=== PATIENT | male | born 1945 | race Caucasian/White ===

== ENCOUNTER 2020-11-01 07:24 | Emergency (ER) | payer MEDICARE ==
[2020-11-01 07:31] VITALS: RESP 18; TEMP 97.8
[2020-11-01] MEDS ORDERED: SODIUM CHLORIDE 0.9% 1,000 ML IV STA (08:07)
[2020-11-01] MEDS ORDERED: MORPHINE SULFATE 2 MG/ML SYRINGE IVP STA (08:07)
[2020-11-01] MEDS ORDERED: ONDANSETRON 4 MG/2 ML VIAL IVP STA (08:07)
--- NOTE | 2020-11-01 08:16 | ED ---
General Adult HPI - General Chief complaint: Abdominal Pain Stated complaint: Abd Pain Time Seen by Provider: 11/01/20 07:32 Source: patient, RN notes reviewed Mode of arrival: ambulatory Limitations: no limitations - History of Present Illness Initial comments: 75-year-old male with a past medical history of GERD, hypertension, kidney stones, cholecystectomy presents to the emergency room for chief complaint of abdominal pain. Patient reports he has had abdominal pain on and off since Wednesday. He reports that Wednesday he had 4 episodes of vomiting. He states this resolved but he is still nauseous and has not been eating or drinking. Patient had 4 loose bowel movements Wednesday. States that these were dark and sticky. He has not had bowel movement since has been passing gas. States that since that time his abdomen has been distended. He has had intermittent pain.Patient has no other complaints at this time including shortness of breath, chest pain, nausea or vomiting, headache, or visual changes. - Related Data Previous Rx's Medication Instructions Recorded Dicyclomine [Bentyl] 20 mg PO TID PRN #14 tablet 11/01/20 Ondansetron [Zofran ODT] 4 mg PO Q8HR PRN #15 tab 11/01/20 Allergies Allergy/AdvReac Type Severity Reaction Status Date / Time No Known Allergies Allergy Verified 11/01/20 07:25 Review of Systems ROS Statement: Those systems with pertinent positive or pertinent negative responses have been documented in the HPI. ROS Other: All systems not noted in ROS Statement are negative. Past Medical History Past Medical History: GERD/Reflux, Hypertension, Thyroid Disorder Additional Past Medical History / Comment(s): kidney stones History of Any Multi-Drug Resistant Organisms: None Reported Past Surgical History: Cholecystectomy Additional Past Surgical History / Comment(s): lithotripsy Past Psychological History: No Psychological Hx Reported Smoking Status: Never smoker Past Alcohol Use History: None Reported Past Drug Use History: None Reported General Exam Limitations: no limitations General appearance: alert, in no apparent distress Head exam: Present: atraumatic, normocephalic, normal inspection Eye exam: Present: normal appearance, PERRL, EOMI. Absent: scleral icterus, conjunctival injection, periorbital swelling ENT exam: Present: normal exam, mucous membranes moist Neck exam: Present: normal inspection, full ROM. Absent: tenderness, men ingismus, lymphadenopathy Respiratory exam: Present: normal lung sounds bilaterally. Absent: respiratory distress, wheezes, rales, rhonchi, stridor Cardiovascular Exam: Present: regular rate, normal rhythm, normal heart sounds. Absent: systolic murmur, diastolic murmur, rubs, gallop, clicks GI/Abdominal exam: Present: soft, distended, normal bowel sounds. Absent: tenderness (no significant abdominal tenderness), guarding, rebound, rigid Course Vital Signs 11/01/20 07:25 Temperature 97.8 F Pulse Rate 107 H Respiratory 18 Rate Blood Pressure 134/89 O2 Sat by Pulse 97 Oximetry Medical Decision Making - Medical Decision Making Vitals are stable. CBC unremarkable. CMP does show dehydration. Patient was given a liter of fluid. Total bilirubin 2.1, patient does have a history of cholecystectomy. Patient does have 37 white blood cells in the urine however no bacteria. This will be cultured. CT abdomen and pelvis with contrast shows numerous fluid-filled small bowel loops could be associated with enteritis or ileus. Partial obstructive pattern not entirely excluded. Patient does report that he is passing gas. There are also other incidental findings found, patient will follow-up with his primary care doctor to review the CAT scan findings. These were discussed with patient. Patient reevaluated, pain has subsided. Given possible partial obstructive pattern, I did offer admission to patient. At this time he prefers to go home and return if he has worsening symptoms. I discussed her to return parameters with patient and . They will call Dr. Menjivar to follow up today. - Lab Data Result diagrams: 11/01/20 08:19 11/01/20 08:19 Lab Results 11/01/20 11/01/20 11/01/20 Range/Units 08:19 08:19 08:19 WBC 8.7 (3.8-10.6) k/uL RBC 5.40 (4.30-5.90) m/uL Hgb 17.0 (13.0-17.5) gm/dL Hct 48.1 (39.0-53.0) % MCV 89.1 (80.0-100.0) fL MCH 31.5 (25.0-35.0) pg MCHC 35.3 (31.0-37.0) g/dL RDW 13.0 (11.5-15.5) % Plt Count 238 (150-450) k/uL MPV 7.1 Neutrophils % 81 % Lymphocytes % 6 % Monocytes % 9 % Eosinophils % 2 % Basophils % 0 % Neutrophils # 7.0 (1.3-7.7) k/uL Lymphocytes # 0.6 L (1.0-4.8) k/uL Monocytes # 0.8 (0-1.0) k/uL Eosinophils # 0.2 (0-0.7) k/uL Basophils # 0.0 (0-0.2) k/uL Sodium 139 (137-145) mmol/L Potassium 3.7 (3.5-5.1) mmol/L Chloride 108 H (98-107) mmol/L Carbon Dioxide 24 (22-30) mmol/L Anion Gap 7 mmol/L BUN 27 H (9-20) mg/dL Creatinine 0.75 (0.66-1.25) mg/dL Est GFR (CKD-EPI)AfAm >90 (>60 ml/min/1.73 sqM) Est GFR (CKD-EPI)NonAf 90 (>60 ml/min/1.73 sqM) Glucose 123 H (74-99) mg/dL Plasma Lactic Acid Mookie (0.7-2.0) mmol/L Calcium 9.0 (8.4-10.2) mg/dL Total Bilirubin 2.1 H (0.2-1.3) mg/dL AST 53 (17-59) U/L ALT 36 (4-49) U/L Alkaline Phosphatase 82 (38-126) U/L Total Protein 6.4 (6.3-8.2) g/dL Albumin 3.6 (3.5-5.0) g/dL Amylase 37 (30-110) U/L Lipase 31 (23-300) U/L Urine Color Yellow Urine Appearance Clear (Clear) Urine pH 5.5 (5.0-8.0) Ur Specific [place] 1.030 (1.001-1.035) Urine Protein Trace H (Negative) Urine Glucose (UA) Negative (Negative) Urine Ketones 1+ H (Negative) Urine Blood Small H (Negative) Urine Nitrite Negative (Negative) Urine Bilirubin Negative (Negative) Urine Urobilinogen 2.0 (<2.0) mg/dL Ur Leukocyte Esterase Large H (Negative) Urine RBC 56 H (0-5) /hpf Urine WBC 37 H (0-5) /hpf Urine Mucus Moderate H (None) /hpf Stool Occult Blood (Negative) 11/01/20 11/01/20 Range/Units 08:19 08:19 WBC (3.8-10.6) k/uL RBC (4.30-5.90) m/uL Hgb (13.0-17.5) gm/dL Hct (39.0-53.0) % MCV (80.0-100.0) fL MCH (25.0-35.0) pg MCHC (31.0-37.0) g/dL RDW (11.5-15.5) % Plt Count (150-450) k/uL MPV Neutrophils % % Lymphocytes % % Monocytes % % Eosinophils % % Basophils % % Neutrophils # (1.3-7.7) k/uL Lymphocytes # (1.0-4.8) k/uL Monocytes # (0-1.0) k/uL Eosinophils # (0-0.7) k/uL Basophils # (0-0.2) k/uL Sodium (137-145) mmol/L Potassium (3.5-5.1) mmol/L Chloride (98-107) mmol/L Carbon Dioxide (22-30) mmol/L Anion Gap mmol/L BUN (9-20) mg/dL Creatinine (0.66-1.25) mg/dL Est GFR (CKD-EPI)AfAm (>60 ml/min/1.73 sqM) Est GFR (CKD-EPI)NonAf (>60 ml/min/1.73 sqM) Glucose (74-99) mg/dL Plasma Lactic Acid Mookie 1.0 (0.7-2.0) mmol/L Calcium (8.4-10.2) mg/dL Total Bilirubin (0.2-1.3) mg/dL AST (17-59) U/L ALT (4-49) U/L Alkaline Phosphatase (38-126) U/L Total Protein (6.3-8.2) g/dL Albumin (3.5-5.0) g/dL Amylase (30-110) U/L Lipase (23-300) U/L Urine Color Urine Appearance (Clear) Urine pH (5.0-8.0) Ur Specific [place] (1.001-1.035) Urine Protein (Negative) Urine Glucose (UA) (Negative) Urine Ketones (Negative) Urine Blood (Negative) Urine Nitrite (Negative) Urine Bilirubin (Negative) Urine Urobilinogen (<2.0) mg/dL Ur Leukocyte Esterase (Negative) Urine RBC (0-5) /hpf Urine WBC (0-5) /hpf Urine Mucus (None) /hpf Stool Occult Blood Negative (Negative) Disposition Clinical Impression: Abdominal pain, Nausea vomiting and diarrhea Disposition: HOME SELF-CARE Condition: Good Instructions (If sedation given, give patient instructions): Abdominal Pain (ED), Clear Liquid Diet (ED) Additional Instructions: Please take medications as directed. Follow-up with Dr. Menjivar by calling today. You must return to the emergency room for any worsening symptoms. These could include worsening abdominal pain, vomiting, no longer passing gas, fevers, or any other concerning symptoms. Prescriptions: Dicyclomine [Bentyl] 20 mg PO TID PRN #14 tablet PRN Reason: abdominal pain Ondansetron [Zofran ODT] 4 mg PO Q8HR PRN #15 tab PRN Reason: Nausea Is patient prescribed a controlled substance at d/c from ED?: No Referrals: Natalie Menjivar MD [Primary Care Provider] - 1-2 days Time of Disposition: 10:03
[2020-11-01 08:31] LABS: Basophils % (A) 0 %; Eosinophils # (A) 0.2 k/uL (0-0.7); Eosinophils % (A) 2 %; HCT 48.1 % (39.0-53.0); Lymphocytes # (A) 0.6 k/uL (1.0-4.8); Lymphocytes % (A) 6 %; MCH 31.5 pg (25.0-35.0); MCHC 35.3 g/dL (31.0-37.0); MCV 89.1 fL (80.0-100.0); Mean Platelet Volume 7.1; Monocytes # (A) 0.8 k/uL (0-1.0); Monocytes % (A) 9 %; Neutrophils % (A) 81 %; Platelet Count 238 k/uL (150-450); WBC 8.7 k/uL (3.8-10.6)
[2020-11-01 08:51] LABS: ALT 36 U/L (4-49); AST 53 U/L (17-59); African American GFR (CKD) >90 (>60 ml/min/1.73 sqM); Albumin 3.6 g/dL (3.5-5.0); Alkaline Phosphatase 82 U/L (38-126); Amylase 37 U/L (30-110); Anion Gap 7 mmol/L; Blood Urea Nitrogen 27 mg/dL (9-20); Carbon Dioxide 24 mmol/L (22-30); Chloride 108 mmol/L (98-107); Glucose 123 mg/dL (74-99); Lipase 31 U/L (23-300); Non-African American GFR(CKD) 90 (>60 ml/min/1.73 sqM); Potassium 3.7 mmol/L (3.5-5.1); Sodium 139 mmol/L (137-145); Total Bilirubin 2.1 mg/dL (0.2-1.3); Total Protein 6.4 g/dL (6.3-8.2)
[2020-11-01 09:03] LABS: Appearance,Urine Clear (Clear); Bilirubin,Urine Negative (Negative); Blood,Urine Small (Negative); Color,Urine Yellow; Glucose,Urine (UA) Negative (Negative); Ketones,Urine 1+ (Negative); Leukocyte Esterase,Urine Large (Negative); Mucus,Urine Moderate /hpf; Nitrite,Urine Negative (Negative); PH, Urine 5.5 (5.0-8.0); Protein,Urine Trace (Negative); RBC,Urine 56 /hpf (0-5); WBC,Urine 37 /hpf (0-5)
--- NOTE | 2020-11-01 09:25 | CT ---
EXAMINATION TYPE: CT abdomen pelvis w con DATE OF EXAM: 11/01/2020 COMPARISON: None HISTORY: Abdominal pain, bloating, nausea, vomiting CT DLP: 966.7 mGycm Automated exposure control for dose reduction was used. CONTRAST: CT scan of the abdomen pelvis is performed with IV Contrast, patient injected with 100 mL of Isovue 3 00. FINDINGS- LUNG BASES-dense coronary artery subsegmental atelectasis.. LIVER/GB- No hypodensities within the liver is small to characterize likely in the basis of simple cyst and there is a small amount of free fluid surrounding the liver. Postcholecystectomy. PANCREAS- No gross abnormality is seen. SPLEEN- No gross abnormality is seen. ADRENALS- No gross abnormality is seen. KIDNEYS/BLADDER-there are bilateral numerous renal calculi and no evidence of hydronephrosis. Hypoden sities measuring less than centimeter bilaterally. BOWEL- no bowel dilatation. Normal appendix there are few prominent fluid-filled small bowel loops. There is mild induration of the mesentery in the right iliac. Correlate for an enteritis or ileus. P artial obstruction not excluded. Correlate clinically. 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 Diverticulosis of the colon. Small hiatal hernia noted. LYMPH NODES- No greater than 1cm abdominal or pelvic lymph nodes areappreciated. OSSEOUS STRUCTURES-hypertrophic and degenerative changes of the spine.. OTHER- aorta of normal caliber. Small amount of free fluid surrounding the liver. Punctate calcifica tion the bladder in the prostate is enlarged. Nonspecific small amount of fluid in the pelvis. Athero sclerotic change aorta. Tiny fat-containing periumbilical hernia. IMPRESSION- 1. Nonspecific gas pattern. There are numerous fluid-filled small bowel loops mid and right mid abdom en with mild induration of the fat which could be associated with enteritis or ileus. Partial obstruc tive pattern not entirely excluded. 2. Bilateral nonobstructing renal calculi. Punctate calcification in the posterior margin of the blad savage suggesting bladder calculus. Prostate is enlarged correlate with PSA. 3. 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 4. There is a small amount of free fluid in the pelvis as well as surrounding the liver correlate wit h LFTs for hepatocellular disease.
[2020-11-01 10:05] VITALS: BP 127/90; PULSE 85
== END 2020-11-01 10:13 | disposition home or self-care (01) ==
LOC: EC 07:24
DX: R10.9 Unspecified abdominal pain (principal); R11.2 Nausea with vomiting, unspecified; R19.7 Diarrhea, unspecified; I10 Essential (primary) hypertension; Z90.49 Acquired absence of other specified parts of digestive tract; Z87.442 Personal history of urinary calculi
CPT/HCPCS: 36415; 80053; 82150; 83605; 83690; 85025; 82272; 81001; 87086; 74177; 99284; 96374; 96375; 96361; J2405; J2270; Q9967; 96360; 99285

== ENCOUNTER → 2020-11-04 | Outpatient (CLI) | payer MEDICARE ==
--- NOTE | 2020-11-04 10:35 | XR ---
EXAMINATION TYPE: XR abdomen 2V DATE OF EXAM: 11/04/2020 10:12 AM CLINICAL HISTORY: History of partial bowel obstruction TECHNIQUE: Single supine KUB image of the abdomen is obtained. COMPARISON: None. FINDINGS: Scattered gas is seen in non-distended small bowel loops. Gas and fecal material is seen in mildly distended colon. There is no visceromegaly, pneumoperitoneum, or abnormal calcification appre ciated. The lung bases are clear and the osseous structures are intact. Densities overlie the bilater al renal shadows, consistent with known nephrolithiasis. IMPRESSION: There is a large amount of fecal material seen within a mildly distended descending colon. Bilateral nephrolithiasis.
== END | disposition home or self-care (01) ==
LOC: RADXRMAIN 09:50
PROVIDERS: ATTEND Internal Medicine
DX: N20.0 Calculus of kidney (principal); K56.600 Partial intestinal obstruction, unspecified as to cause
CPT/HCPCS: 74019

== ENCOUNTER 2020-12-05 12:21 | Emergency (ER) | payer MEDICARE ==
[2020-12-05 12:29] VITALS: TEMP 97.6
[2020-12-05] MEDS ORDERED: SODIUM CHLORIDE 0.9% 500 ML 500 ML IV STA (13:14)
--- NOTE | 2020-12-05 13:20 | ED ---
General Adult HPI - General Chief complaint: Syncope Stated complaint: Syncope Time Seen by Provider: 12/05/20 12:25 Source: patient, EMS, RN notes reviewed, old records reviewed Mode of arrival: EMS Limitations: no limitations - History of Present Illness Initial comments: This is a 75-year-old male who presents emergency department after having had a syncopal episode. Patient states he had surgery on his eye on Wednesday the contact that was post to protect his eye fell out and he was in excruciating pain ever since he fell about 2 hours after surgery. Patient said he had a real rough night last night in the middle the night he woke up he was in so much pain he decided he needed to go to the eye doctor today when he was at the eye doctor's office they attempted 6 or 7 times at least to try to put the contact begin the eventually got up in the meantime the pain was excruciating he became extremely nauseous and passed out in a chair. Patient states at no time before or after didn't have any chest pain difficulty breathing or shortness of breath he denies any headache denies any numbness weakness. Patient states he feels completely at his baseline again and the pain is much better now that the Contact and protects his cornea. Patient denies any other symptoms at this time per patient denies any nausea vomiting. Patient states he was eating normally - Related Data Home Medications Medication Instructions Recorded Confirmed Aspirin EC [Ecotrin Low Dose] 162 mg PO DAILY 12/05/20 12/05/20 Cholecalciferol [Vitamin D3 (25 50 mcg PO DAILY 12/05/20 12/05/20 Mcg = 1000 Iu)] Docusate [Colace] 200 mg PO DAILY 12/05/20 12/05/20 Levothyroxine Sodium [Synthroid] 75 mcg PO [id number] 12/05/20 12/05/20 Levothyroxine Sodium [Synthroid] 150 mcg PO CASE 12/05/20 12/05/20 Multivit-Min/Folic/Vit K/Lycop 1 tab PO W/LUNCH 12/05/20 12/05/20 [Men's Multivitamin Tablet] NIFEdipine [NIFEdipine ER] 30 mg PO DAILY 12/05/20 12/05/20 Ofloxacin 0.3% Ophth Soln [Ocuflox 1 drop LEFT EYE QID 12/05/20 12/05/20 Ophth Soln] Omeprazole Magnesium [PriLOSEC] 20 mg PO DAILY 12/05/20 12/05/20 Allergies Allergy/AdvReac Type Severity Reaction Status Date / Time No Known Allergies Allergy Verified 12/05/20 13:58 Review of Systems ROS Statement: Those systems with pertinent positive or pertinent negative responses have been documented in the HPI. ROS Other: All systems not noted in ROS Statement are negative. Past Medical History Past Medical History: GERD/Reflux, Hypertension, Thyroid Disorder Additional Past Medical History / Comment(s): kidney stones History of Any Multi-Drug Resistant Organisms: None Reported Past Surgical History: Cholecystectomy Additional Past Surgical History / Comment(s): lithotripsy Past Psychological History: No Psychological Hx Reported Smoking Status: Never smoker Past Alcohol Use History: None Reported Past Drug Use History: None Reported General Exam - General Exam Comments Initial Comments: GENERAL: Patient is well-developed and well-nourished. Patient is nontoxic and well- hydrated and is in no acute distress. ENT: Neck is soft and supple. No significant lymphadenopathy is noted. Oropharynx is clear. Moist mucous membranes. Neck has full range of motion without eliciting any pain. EYES: The sclera were anicteric and conjunctiva were pink and moist. Extraocular movements were intact and pupils were equal round and reactive to light. Eyelids were unremarkable. PULMONARY: Unlabored respirations. Good breath sounds bilaterally. No audible rales rhonchi or wheezing was noted. CARDIOVASCULAR: There is a regular rate and rhythm without any murmurs gallops or rubs. ABDOMEN: Soft and nontender with normal bowel sounds. SKIN: Skin is clear with no lesions or rashes and otherwise unremarkable. NEUROLOGIC: Patient is alert and oriented x3. Cranial nerves II through XII are grossly intact. Motor and sensory are also intact. Normal speech, volume and content. Symmetrical smile. MUSCULOSKELETAL: Normal extremities with adequate strength and full range of motion. LYMPHATICS: No significant lymphadenopathy is noted PSYCHIATRIC: Normal psychiatric evaluation. Limitations: no limitations Course Vital Signs 12/05/20 12/05/20 12/05/20 12:23 13:20 13:24 Temperature 97.6 F Pulse Rate 71 Pulse Rate [ 70 71 [employer]inator ] Respiratory 18 18 18 Rate Blood Pressure 105/69 Blood Pressure 112/71 [Left Arm Sitting] Blood Pressure 102/67 [Left Arm Standing] Blood Pressure 108/71 [Left Arm Supine] O2 Sat by Pulse 99 98 98 Oximetry Medical Decision Making - Medical Decision Making EKG shows normal sinus rhythm at [address] interval 176 QRS is 94 QT interval 408 QTC is 433. Patient's EKG shows no ST segment elevation or depression. Patient's lab work is normal. Patient was asymptomatic throughout his ED stay. Patient states his eye is very comfortable compared to before. Patient is agreeable to be discharged home and if he has any further symptoms to return. - Lab Data Result diagrams: 12/05/20 13:17 12/05/20 13:17 Lab Results 12/05/20 12/05/20 12/05/20 Range/Units 13:17 13:17 13:17 WBC 7.8 (3.8-10.6) k/uL RBC 5.52 (4.30-5.90) m/uL Hgb 17.4 (13.0-17.5) gm/dL Hct 51.1 (39.0-53.0) % MCV 92.6 (80.0-100.0) fL MCH 31.5 (25.0-35.0) pg MCHC 34.0 (31.0-37.0) g/dL RDW 14.0 (11.5-15.5) % Plt Count 314 (150-450) k/uL MPV 7.9 Neutrophils % 64 % Lymphocytes % 16 % Monocytes % 8 % Eosinophils % 7 % Basophils % 2 % Neutrophils # 5.0 (1.3-7.7) k/uL Lymphocytes # 1.2 (1.0-4.8) k/uL Monocytes # 0.6 (0-1.0) k/uL Eosinophils # 0.6 (0-0.7) k/uL Basophils # 0.1 (0-0.2) k/uL PT 10.3 (9.0-12.0) sec INR 1.0 (<1.2) APTT 22.4 (22.0-30.0) sec Sodium 138 (137-145) mmol/L Potassium 4.1 (3.5-5.1) mmol/L Chloride 107 (98-107) mmol/L Carbon Dioxide 20 L (22-30) mmol/L Anion Gap 11 mmol/L BUN 17 (9-20) mg/dL Creatinine 0.87 (0.66-1.25) mg/dL Est GFR (CKD-EPI)AfAm >90 (>60 ml/min/1.73 sqM) Est GFR (CKD-EPI)NonAf 85 (>60 ml/min/1.73 sqM) Glucose 125 H (74-99) mg/dL Calcium 10.3 H (8.4-10.2) mg/dL Magnesium 2.1 (1.6-2.3) mg/dL Total Bilirubin 1.2 (0.2-1.3) mg/dL AST 24 (17-59) U/L ALT 16 (4-49) U/L Alkaline Phosphatase 113 (38-126) U/L Troponin I (0.000-0.034) ng/mL Total Protein 7.3 (6.3-8.2) g/dL Albumin 4.4 (3.5-5.0) g/dL 12/05/20 Range/Units 13:17 WBC (3.8-10.6) k/uL RBC (4.30-5.90) m/uL Hgb (13.0-17.5) gm/dL Hct (39.0-53.0) % MCV (80.0-100.0) fL MCH (25.0-35.0) pg MCHC (31.0-37.0) g/dL RDW (11.5-15.5) % Plt Count (150-450) k/uL MPV Neutrophils % % Lymphocytes % % Monocytes % % Eosinophils % % Basophils % % Neutrophils # (1.3-7.7) k/uL Lymphocytes # (1.0-4.8) k/uL Monocytes # (0-1.0) k/uL Eosinophils # (0-0.7) k/uL Basophils # (0-0.2) k/uL PT (9.0-12.0) sec INR (<1.2) APTT (22.0-30.0) sec Sodium (137-145) mmol/L Potassium (3.5-5.1) mmol/L Chloride (98-107) mmol/L Carbon Dioxide (22-30) mmol/L Anion Gap mmol/L BUN (9-20) mg/dL Creatinine (0.66-1.25) mg/dL Est GFR (CKD-EPI)AfAm (>60 ml/min/1.73 sqM) Est GFR (CKD-EPI)NonAf (>60 ml/min/1.73 sqM) Glucose (74-99) mg/dL Calcium (8.4-10.2) mg/dL Magnesium (1.6-2.3) mg/dL Total Bilirubin (0.2-1.3) mg/dL AST (17-59) U/L ALT (4-49) U/L Alkaline Phosphatase (38-126) U/L Troponin I <0.012 (0.000-0.034) ng/mL Total Protein (6.3-8.2) g/dL Albumin (3.5-5.0) g/dL Disposition Clinical Impression: Vasovagal syncope Disposition: HOME SELF-CARE Condition: Good Instructions (If sedation given, give patient instructions): Hypotension (ED) Is patient prescribed a controlled substance at d/c from ED?: No Referrals: Natalie Menjivar MD [Primary Care Provider] - 1-2 days Time of Disposition: 14:20
[2020-12-05 13:27] LABS: Basophils # (A) 0.1 k/uL (0-0.2); Basophils % (A) 2 %; Eosinophils # (A) 0.6 k/uL (0-0.7); Eosinophils % (A) 7 %; HCT 51.1 % (39.0-53.0); HGB 17.4 gm/dL (13.0-17.5); Lymphocytes # (A) 1.2 k/uL (1.0-4.8); Lymphocytes % (A) 16 %; MCH 31.5 pg (25.0-35.0); MCV 92.6 fL (80.0-100.0); Mean Platelet Volume 7.9; Monocytes # (A) 0.6 k/uL (0-1.0); Monocytes % (A) 8 %; Neutrophils % (A) 64 %; Platelet Count 314 k/uL (150-450); RBC 5.52 m/uL (4.30-5.90); WBC 7.8 k/uL (3.8-10.6)
[2020-12-05 13:37] LABS: ALT 16 U/L (4-49); AST 24 U/L (17-59); African American GFR (CKD) >90 (>60 ml/min/1.73 sqM); Albumin 4.4 g/dL (3.5-5.0); Alkaline Phosphatase 113 U/L (38-126); Anion Gap 11 mmol/L; Blood Urea Nitrogen 17 mg/dL (9-20); Calcium 10.3 mg/dL (8.4-10.2); Carbon Dioxide 20 mmol/L (22-30); Chloride 107 mmol/L (98-107); Glucose 125 mg/dL (74-99); Magnesium 2.1 mg/dL (1.6-2.3); Non-African American GFR(CKD) 85 (>60 ml/min/1.73 sqM); Potassium 4.1 mmol/L (3.5-5.1); Sodium 138 mmol/L (137-145); Total Bilirubin 1.2 mg/dL (0.2-1.3); Total Protein 7.3 g/dL (6.3-8.2)
[2020-12-05 13:40] LABS: Partial Thromboplastin Time 22.4 sec (22.0-30.0); Prothrombin Time 10.3 sec (9.0-12.0)
[2020-12-05 14:44] VITALS: BP 126/84; PULSE 64; RESP 16
== END 2020-12-05 14:44 | disposition home or self-care (01) ==
LOC: EC 12:21
DX: R55 Syncope and collapse (principal); I10 Essential (primary) hypertension; K21.9 Gastro-esophageal reflux disease without esophagitis; E07.9 Disorder of thyroid, unspecified; Z79.890 Hormone replacement therapy
CPT/HCPCS: 36415; 80053; 83735; 84484; 85025; 85610; 85730; 93005; 96360; 99284

== ENCOUNTER → 2021-09-04 | Outpatient (CLI) | payer MEDICARE ==
--- NOTE | 2021-09-05 09:29 | XR ---
EXAMINATION TYPE: XR KUB DATE OF EXAM: 09/04/2021 Comparison: 11/04/2020 Clinical History: 76-year-old male N20.0 Kidney stones Findings: Cholecystectomy clips. Moderate stool burden. Nonobstructive bowel gas pattern. Bilateral renal calculi are present: Clustered calculus left kidney with aggregate dimension of 2.8 cm. Additional smaller calculi measuri ng up to 4 mm are present on the left. At least 4 dominant calculi in the right, largest measuring 2.2 cm. Impression: Bilateral renal calculi as above. Similar to 11/04/2020.
== END | disposition home or self-care (01) ==
LOC: RADXRMAIN 15:00
PROVIDERS: ATTEND Internal Medicine
DX: N20.0 Calculus of kidney (principal)
CPT/HCPCS: 74018

== ENCOUNTER → 2022-01-13 | Outpatient (CLI) | payer MEDICARE ==
[2022-01-13 13:52] LABS: African American GFR (CKD) >90 (>60 ml/min/1.73 sqM); Blood Urea Nitrogen 25 mg/dL (9-20); Non-African American GFR(CKD) 84 (>60 ml/min/1.73 sqM)
--- NOTE | 2022-01-13 16:25 | CT ---
EXAMINATION TYPE: CT urogram wo/w con DATE OF EXAM: 01/13/2022 COMPARISON: 09/04/2021 HISTORY: 76-year-old male R82.89, other abnormal findings on cytology, bilateral stones TECHNIQUE: Contiguous axial scanning of the abdomen and pelvis performed without and with IV Contrast , patient injected with 100 mL of Isovue 300. Delayed images through the kidneys and bladder were obt ained. Coronal/sagittal reconstructions performed. 3-D reconstructions generated on a dedicated [employer] workstation. CT DLP: 4671 mGycm Automated exposure control for dose reduction was used. FINDINGS: Heart normal size without pericardial effusion. Normal variant sternal foramen. Strandy atelectasis i n the lower lungs without pleural effusion. A few small benign cysts within the liver, largest measuring 1.4 cm. Portal venous system is patent. No biliary ductal dilatation. Cholecystectomy clips. Portacaval lymph node prominent but nonenlarged 1.2 cm. No mesenteric or retroperitoneal lymphadenop athy. Adrenal glands and spleen within normal limits. Enlarging heterogeneous hypovascular mass at the tail of the pancreas at 4.2 x 2.0 cm now versus 2.8 x 2.0 cm, previously on 09/04/2021 and new compared to 11/01/2020. 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 Vessel d ilators up to 1.5 cm. Numerous bilateral renal calculi are present, largest stones are partially casting within the minor c alyces of the left kidney. 6 are present on the left measuring up to 2.4 cm. Approximately 6 calculi are present on the right as well, largest measuring 1.9 cm. Tiny 1.1 cm cortical hypodensity lateral left kidney unchanged from 2020 suggesting a benign cyst. A couple of very small hypodensities likely represent cysts as well. Symmetric uptake and excretion of contrast from both kidneys. No suspicious mass or suspicious fillin g defect in the renal collecting systems or along the course of either ureter. Only small segments of the distal ureters remain nonopacified but show no abnormal thickening. No dilated small bowel, free fluid, free air. Moderate stool burden. Sigmoid diverticulosis. No peric olonic inflammatory change. Bladder partially distended. Prostate gland is enlarged at 5.2 cm wide. There appears to be a cystic area within the left inferior prostate gland measuring 2.6 x 1.1 cm there are no abnormal fluid colle ction in the pelvis or pelvic lymphadenopathy. Bones: Mild degenerative change of the hips. Degenerative bony ankylosis right SI joint. Hypertrophic facet arthropathy mid to lower lumbar spine. Partially bridging anterior endplate spondylosis lumbar spine. [facility] in the lower thoracic spine. IMPRESSION: 1. ENLARGING HYPOVASCULAR PANCREATIC TAIL MASS. THIS MEASURED 2.8 CM ON 09/04/2021 AND NOW MEASURES 4. 2 CM. IT IS NEW COMPARED TO 11/01/2020. APPROPRIATE FURTHER EVALUATION AND MANAGEMENT FOR POTENTIAL PA NCREATIC ADENOCARCINOMA. 2. 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 3. NUMEROUS BILATERAL RENAL CALCULI MEASURING UP TO 2.4 CM. NO OBSTRUCTIVE UROPATHY OR SUSPICIOUS SILKE AL MASS. 4. PROSTATOMEGALY AT 5.2 CM WIDE. THERE APPEARS TO BE A CYSTIC AREA WITHIN THE LEFT INFERIOR PROSTATE GLAND MEASURING 2.6 X 1.1 CM. QUERY SITE OF PREVIOUS BIOPSY. CORRELATE WITH PSA VALUES AND PROSTATE ULTRASOUND INDICATED. A [place] level critical message alert has been initiated for Natalie Menjivar MD via the [employer] Critical Results System on 01/13/2022 1:22 PM. This message alert has been sent to Natalie Menjivar MD via the preferences provided by the clinician for the receipt of Radiology Critical Findings. Message ID [id number].
== END | disposition home or self-care (01) ==
LOC: RADCTMAIN 13:07
PROVIDERS: ATTEND Internal Medicine
DX: R82.89 Other abnormal findings on cytological and histological examination of urine (principal)
CPT/HCPCS: 82565; 84520; 74178; 36415; 74400; Q9967

== ENCOUNTER → 2022-01-16 | Outpatient (CLI) | payer MEDICARE ==
--- NOTE | 2022-01-16 12:42 | NM ---
EXAMINATION TYPE: NM stress cardiolite complete DATE OF EXAM: 01/16/2022 COMPARISON: NONE HISTORY: I20.8; K86.89 TECHNIQUE: After the intravenous administration of 9.7 mCi Tc 99m Sestamibi - Rest images obtained 5 0 minutes post injection. The patient exercised using a LEONILA protocol and 1 minute prior to peak e xercise was injected with 25.7 mCi Tc 99m Sestamibi - Stress images obtained 10 minutes post injectio n. FINDINGS: Targeted heart rate was achieved during performance of the study. Review of stress and rest SPECT nissa ges demonstrates small area of decreased perfusion involving the apical lateral wall on stress images . Stress-induced ischemia is difficult to exclude. Gated analysis shows normal wall motion with an es timated left ventricular ejection fraction of 62 %. IMPRESSION: I cannot exclude reversible ischemia involving the apical lateral wall.
== END | disposition home or self-care (01) ==
LOC: RADNMMAIN 07:43
PROVIDERS: ATTEND Internal Medicine
DX: I20.8 Other forms of angina pectoris (principal); K86.89 Other specified diseases of pancreas
CPT/HCPCS: 93017; 78452; A9500

== ENCOUNTER → 2022-01-17 | Outpatient (CLI) | payer MEDICARE ==
--- NOTE | 2022-01-18 05:22 | MR ---
EXAMINATION TYPE: MR pancreas wo/w con DATE OF EXAM: 01/17/2022 COMPARISON: CT scan 01/13/2022 HISTORY: Pancreatic mass. CONTRAST: Standard multiplanar, multisequence MRI departmental protocol images were obtained without contrast a nd with 8 mL intravenous Gadavist gadolinium contrast. The liver has normal size and contour. There is 2 cm cyst in the left lobe of the liver. There are ot her smaller hepatic cysts. Spleen is intact. The stomach is intact. The bile ducts are not dilated. T here is no evidence of pleural effusion. Heart size is normal. There is oval-shaped mixed-signal mass in the tail of the pancreas that measures 5 x 2.2 cm. On the T 2 images this appears to contain multiple small cysts. The contrast images show delayed enhancement o f the lesion. Enhancement is only in the periphery. There is no adrenal mass. Kidneys have normal size and contour. No hydronephrosis. No retroperitoneal adenopathy. The contrast images show normal enhancement of the portal venous system. There is normal enhancement of the kidneys. No evidence of ascites. IMPRESSION: Oval-shaped mass in the tail of the pancreas is hypovascular and appears to contain multiple small cy sts. There is some delayed peripheral enhancement and a cystic malignant tumor is certainly a possibi lity. No evidence of any regional adenopathy. Small hepatic cysts are noted.
== END | disposition home or self-care (01) ==
LOC: RADMRIMAIN 10:12
PROVIDERS: ATTEND Internal Medicine
DX: K86.89 Other specified diseases of pancreas (principal); K86.9 Disease of pancreas, unspecified
CPT/HCPCS: 74183; A9585

== ENCOUNTER → 2022-03-09 | Outpatient (CLI) | payer MEDICARE ==
--- NOTE | 2022-03-09 14:50 | CT ---
EXAMINATION TYPE: CT ChestAbdPelvis w con CT DLP: 1321.8 mGycm, Automated exposure control for dose reduction was used. DATE OF EXAM: 03/09/2022 1:57 PM COMPARISON: CT 01/13/2022 , 09/04/2021 6, 11/01/2020, MRI 01/17/2022 CLINICAL INDICATION:Male, 76 years old with history of D13.6 BENIGN NEOPLASM OF PANCREAS; Technique: Multiple axial images of the chest, abdomen, and pelvis were obtained. Two-dimensional cor onal and sagittal reconstructions were obtained. Contrast used:70 mL of Isovue 300 with IV Contrast, Oral contrast used: with Oral Contrast Findings: CHEST: LUNGS/ PLEURA: The lung parenchyma appears unremarkable. AIRWAY: Patent and unremarkable. HEART: Size within normal limits. Moderate atherosclerosis of the arterial vasculature. MEDIASTINUM: No gross evidence of adenopathy. VASCULATURE: No aortic aneurysm. MUSCULOSKELETAL: No acute osseous abnormalities. SOFT TISSUES/LYMPH NODES: Unremarkable. LOWER NECK: No significant findings. ABDOMEN: ABDOMEN LIVER: Scattered hypoechoic attenuating lesions throughout the liver the largest measuring 14 mm and most consistent with a cyst. GALLBLADDER AND BILE DUCTS: The gallbladder is surgically absent. PANCREAS: Pancreatic tail mass is again demonstrated measuring up to 5.1 x 2.4 cm which is hypoechoic attenuating compared to pancreatic parenchyma. Note that this is not definitively visualized on 11/01 and is most apparent on 09/04/2021 examination where it measured 2.8 x 2.0 cm without IV contras t which limited its evaluation 09/04/2021. SPLEEN: Unremarkable. ADRENAL GLANDS: Unremarkable. KIDNEYS AND URETERS: Bilateral nonobstructing renal calculi No evidence of obstructive uropathy. PELVIS BLADDER: Unremarkable REPRODUCTIVE: Prostate is enlarged in size measuring 5.3 cm in transverse dimension. Trace bilateral hydroceles. ABDOMEN & PELVIS STOMACH AND BOWEL: No evidence of bowel obstruction. Small hiatal hernia. Colonic diverticula are pre sent. PERITONEUM: No evidence of pneumoperitoneum or free fluid. VASCULATURE: No evidence of aortic aneurysm. 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 MUSCULOSKELETAL: No acute osseous abnormalities LYMPH NODES: No gross evidence for lymphadenopathy. SOFT TISSUE/ABDOMINAL WALL: Unremarkable IMPRESSION: 1. Redemonstration of pancreatic tail mass measuring up to 5.[address] No definitive evidence for metastatic disease at this time. 2. Bilateral nonobstructing renal calculi. 3. Prostatomegaly. Correlate with serum PSA. 4. 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 5. Colonic diverticulosis.
== END | disposition home or self-care (01) ==
LOC: RADCTMAIN 11:38
PROVIDERS: ATTEND Internal Medicine
DX: N20.0 Calculus of kidney (principal); N40.0 Benign prostatic hyperplasia without lower urinary tract symptoms; K57.30 Diverticulosis of large intestine without perforation or abscess without bleeding; D13.6 Benign neoplasm of pancreas; I77.4 Celiac artery compression syndrome
CPT/HCPCS: 82565; 84520; 71260; 74177; 36415; Q9967

== ENCOUNTER → 2022-03-16 | Outpatient (CLI) | payer MEDICARE ==
[2022-03-16 16:28] LABS: African American GFR (CKD) >90 (>60 ml/min/1.73 sqM); Blood Urea Nitrogen 20 mg/dL (9-20); Non-African American GFR(CKD) 89 (>60 ml/min/1.73 sqM)
--- NOTE | 2022-03-16 17:19 | CT ---
EXAMINATION TYPE: CT chest w con CT DLP: 357.8 mGycm, Automated exposure control for dose reduction was used. DATE OF EXAM: 03/16/2022 4:56 PM COMPARISON: CT chest abdomen pelvis 03/09/2022. CLINICAL INDICATION:Male, 76 years old with history of C25.2;chest mass TECHNIQUE: Multiple axial images were obtained through the chest. Sagittal and coronal reformats were created for review. Contrast used:100 mL of Isovue 370 with IV Contrast Oral contrast used: none. FINDINGS: LUNGS/ PLEURA: The lung parenchyma appears unremarkable. AIRWAY: Patent and unremarkable. HEART: No heart is within normal limits for size there is atherosclerosis of the arterial vasculature . MEDIASTINUM: No gross evidence of adenopathy. VASCULATURE: No aortic aneurysm. Mild atherosclerosis of the arterial vasculature. MUSCULOSKELETAL: No acute osseous abnormalities SOFT TISSUES/LYMPH NODES: Unremarkable. LOWER NECK: No significant findings. UPPER ABDOMEN: Redemonstration of pancreatic tail mass measuring up to 5.1 cm in greatest dimension. Scattered hepatic low density probable cyst. Multiple bilateral nonobstructing renal calculi. IMPRESSION: 1. No significant change from 03/09/2022 no chest mass or evidence of metastatic disease. 2. Similar pancreatic tail mass at 03/09/2022.
== END | disposition home or self-care (01) ==
LOC: RADCTMAIN 15:49
PROVIDERS: ATTEND Internal Medicine
DX: C25.2 Malignant neoplasm of tail of pancreas (principal); Z03.89 Encounter for observation for other suspected diseases and conditions ruled out
CPT/HCPCS: 82565; 84520; 71260; 36415; Q9967

== ENCOUNTER → 2022-04-03 | Outpatient (CLI) | payer MEDICARE ==
[~2022-04-03] MED LIST: TIXAGEVIMAB/CILGAVIMAB (EUA) 300 MG/3 ML COMBO.PKG IM NR
[2022-04-03 10:41] VITALS: RESP 16; TEMP 97.5
[2022-04-03 11:09] VITALS: BP 149/94; PULSE 87
== END ==
LOC: PROCWHC3 10:20
PROVIDERS: ATTEND Internal Medicine
DX: Z23 Encounter for immunization (principal); C25.2 Malignant neoplasm of tail of pancreas; Z71.3 Dietary counseling and surveillance
CPT/HCPCS: 96372; Q0220

== ENCOUNTER 2022-04-17 08:28 | Emergency (ER) | payer MEDICARE ==
[2022-04-17 08:37] VITALS: RESP 18; TEMP 97.6
[2022-04-17] MEDS ORDERED: PANTOPRAZOLE 40 MG/10 ML VIAL IVP STA (08:51)
[2022-04-17] MEDS ORDERED: SODIUM CHLORIDE 0.9% 1,000 ML IV STA (08:51)
--- NOTE | 2022-04-17 08:54 | ED ---
General Adult HPI - General Chief complaint: Abdominal Pain Stated complaint: Abd pain Time Seen by Provider: 04/17/22 08:40 Source: patient, RN notes reviewed Mode of arrival: ambulatory Limitations: no limitations - History of Present Illness Initial comments: Patient is a pleasant 76-year-old male presenting to the emergency department with concerns with abdominal discomfort. Onset of symptoms was last night. Patient did have nausea. No vomiting. Patient felt somewhat constipated however did have mild amount of loose stool which did improve the symptoms. Further symptom improvement occurred around time of arrival and discomfort is only mild at this time. Patient does not feel he needs any nausea or pain medication at this time. Patient does have recent diagnosis of pancreatic cancer, stage I. Patient has received 2 bouts of chemotherapy. - Related Data Home Medications Medication Instructions Recorded Confirmed Aspirin EC [Ecotrin Low Dose] 162 mg PO DAILY 12/05/20 04/03/22 Cholecalciferol [Vitamin D3 (25 50 mcg PO DAILY 12/05/20 04/03/22 Mcg = 1000 Iu)] Levothyroxine Sodium [Synthroid] 75 mcg PO MOTUWETHFRSA 12/05/20 04/03/22 Levothyroxine Sodium [Synthroid] 150 mcg PO CASE 12/05/20 04/03/22 Multivit-Min/Folic/Vit K/Lycop 1 tab PO W/LUNCH 12/05/20 04/03/22 [Men's Multivitamin Tablet] NIFEdipine [NIFEdipine ER] 30 mg PO DAILY 12/05/20 04/03/22 Ofloxacin 0.3% Ophth Soln [Ocuflox 1 drop LEFT EYE QID 12/05/20 04/03/22 Ophth Soln] Omeprazole Magnesium [PriLOSEC] 20 mg PO DAILY 12/05/20 04/03/22 Allergies Allergy/AdvReac Type Severity Reaction Status Date / Time No Known Allergies Allergy Verified 04/17/22 08:37 Review of Systems ROS Statement: Those systems with pertinent positive or pertinent negative responses have been documented in the HPI. ROS Other: All systems not noted in ROS Statement are negative. Constitutional: Denies: fever Eyes: Denies: eye pain ENT: Denies: ear pain Respiratory: Denies: cough Cardiovascular: Denies: chest pain Endocrine: Denies: fatigue Gastrointestinal: Reports: as per HPI, abdominal pain, nausea Genitourinary: Denies: dysuria Musculoskeletal: Denies: back pain Skin: Denies: rash Neurological: Denies: weakness Past Medical History Past Medical History: Cancer, GERD/Reflux, Hypertension, Thyroid Disorder Additional Past Medical History / Comment(s): kidney stones, Pancreatic Cancer History of Any Multi-Drug Resistant Organisms: None Reported Past Surgical History: Adenoidectomy, Appendectomy, Cholecystectomy, Tonsill ectomy Additional Past Surgical History / Comment(s): lithotripsy Bilateral cataract surgery with lens implant, Corneal surgery Past Psychological History: No Psychological Hx Reported Smoking Status: Never smoker Past Alcohol Use History: None Reported Past Drug Use History: None Reported General Exam Limitations: no limitations General appearance: alert, in no apparent distress Eye exam: Present: normal appearance Neck exam: Present: normal inspection Respiratory exam: Present: normal lung sounds bilaterally Cardiovascular Exam: Present: regular rate, normal rhythm Expanded Peripheral pulses: 2+: Posterior Tibialis (R), Posterior Tibialis (L) GI/Abdominal exam: Present: soft. Absent: distended, tenderness Extremities exam: Present: normal inspection Neurological exam: Present: alert Psychiatric exam: Present: normal affect, normal mood Skin exam: Present: normal color Course Vital Signs 04/17/22 04/17/22 08:33 09:37 Temperature 97.6 F Pulse Rate 121 H 106 H Respiratory 18 18 Rate Blood Pressure 142/81 130/90 O2 Sat by Pulse 98 97 Oximetry EKG Findings - EKG Results: EKG: interpreted by ERMD, sinus rhythm, normal axis, normal QRS, normal ST/T EKG shows: tachycardia (102) Medical Decision Making - Medical Decision Making Patient reevaluated and updated. Patient made aware need for follow-up with urology and oncology and primary care physician as well as need for repeat labs. - Lab Data Result diagrams: 04/17/22 09:02 04/17/22 09:02 Lab Results 04/17/22 04/17/22 04/17/22 Range/Units 09:02 09:02 09:02 WBC 8.3 (3.8-10.6) k/uL RBC 5.12 (4.30-5.90) m/uL Hgb 15.9 (13.0-17.5) gm/dL Hct 46.1 (39.0-53.0) % MCV 89.9 (80.0-100.0) fL MCH 31.0 (25.0-35.0) pg MCHC 34.5 (31.0-37.0) g/dL RDW 12.4 (11.5-15.5) % Plt Count 169 (150-450) k/uL MPV 7.9 Neutrophils % 90 % Lymphocytes % 5 % Monocytes % 3 % Eosinophils % 1 % Basophils % 0 % Neutrophils # 7.5 (1.3-7.7) k/uL Lymphocytes # 0.4 L (1.0-4.8) k/uL Monocytes # 0.3 (0-1.0) k/uL Eosinophils # 0.1 (0-0.7) k/uL Basophils # 0.0 (0-0.2) k/uL PT 9.9 (9.0-12.0) sec INR 0.9 (<1.2) APTT 24.0 (22.0-30.0) sec Sodium 138 (137-145) mmol/L Potassium 4.2 (3.5-5.1) mmol/L Chloride 107 (98-107) mmol/L Carbon Dioxide 21 L (22-30) mmol/L Anion Gap 10 mmol/L BUN 34 H (9-20) mg/dL Creatinine 1.29 H (0.66-1.25) mg/dL Est GFR (CKD-EPI)AfAm 62 (>60 ml/min/1.73 sqM) Est GFR (CKD-EPI)NonAf 54 (>60 ml/min/1.73 sqM) Glucose 121 H (74-99) mg/dL Calcium 8.6 (8.4-10.2) mg/dL Total Bilirubin 1.7 H (0.2-1.3) mg/dL AST 128 H (17-59) U/L ALT 160 H (4-49) U/L Alkaline Phosphatase 90 (38-126) U/L Total Protein 7.0 (6.3-8.2) g/dL Albumin 4.1 (3.5-5.0) g/dL Amylase 47 (30-110) U/L Lipase 35 (23-300) U/L Urine Color Urine Appearance (Clear) Urine pH (5.0-8.0) Ur Specific [place] (1.001-1.035) Urine Protein (Negative) Urine Glucose (UA) (Negative) Urine Ketones (Negative) Urine Blood (Negative) Urine Nitrite (Negative) Urine Bilirubin (Negative) Urine Urobilinogen (<2.0) mg/dL Ur Leukocyte Esterase (Negative) Urine RBC (0-5) /hpf Urine WBC (0-5) /hpf Ur Squamous Epith Cells (0-4) /hpf Urine Mucus (None) /hpf 04/17/22 Range/Units 09:02 WBC (3.8-10.6) k/uL RBC (4.30-5.90) m/uL Hgb (13.0-17.5) gm/dL Hct (39.0-53.0) % MCV (80.0-100.0) fL MCH (25.0-35.0) pg MCHC (31.0-37.0) g/dL RDW (11.5-15.5) % Plt Count (150-450) k/uL MPV Neutrophils % % Lymphocytes % % Monocytes % % Eosinophils % % Basophils % % Neutrophils # (1.3-7.7) k/uL Lymphocytes # (1.0-4.8) k/uL Monocytes # (0-1.0) k/uL Eosinophils # (0-0.7) k/uL Basophils # (0-0.2) k/uL PT (9.0-12.0) sec INR (<1.2) APTT (22.0-30.0) sec Sodium (137-145) mmol/L Potassium (3.5-5.1) mmol/L Chloride (98-107) mmol/L Carbon Dioxide (22-30) mmol/L Anion Gap mmol/L BUN (9-20) mg/dL Creatinine (0.66-1.25) mg/dL Est GFR (CKD-EPI)AfAm (>60 ml/min/1.73 sqM) Est GFR (CKD-EPI)NonAf (>60 ml/min/1.73 sqM) Glucose (74-99) mg/dL Calcium (8.4-10.2) mg/dL Total Bilirubin (0.2-1.3) mg/dL AST (17-59) U/L ALT (4-49) U/L Alkaline Phosphatase (38-126) U/L Total Protein (6.3-8.2) g/dL Albumin (3.5-5.0) g/dL Amylase (30-110) U/L Lipase (23-300) U/L Urine Color Light Yellow Urine Appearance Clear (Clear) Urine pH 6.5 (5.0-8.0) Ur Specific [place] 1.020 (1.001-1.035) Urine Protein Trace H (Negative) Urine Glucose (UA) Negative (Negative) Urine Ketones Negative (Negative) Urine Blood Moderate H (Negative) Urine Nitrite Negative (Negative) Urine Bilirubin Negative (Negative) Urine Urobilinogen 2.0 (<2.0) mg/dL Ur Leukocyte Esterase Trace H (Negative) Urine RBC 51 H (0-5) /hpf Urine WBC 6 H (0-5) /hpf Ur Squamous Epith Cells <1 (0-4) /hpf Urine Mucus Rare H (None) /hpf - Radiology Data Radiology results: report reviewed (Computed tomography scan abdomen pelvis shows left UPJ stone 5 mm. Unchanged pancreatic tail mass.) Disposition Clinical Impression: Ureterolithiasis Disposition: HOME SELF-CARE Condition: Stable Instructions (If sedation given, give patient instructions): Kidney Stones (ED) Additional Instructions: Please do follow-up with primary care physician and your oncologist and urologist in the next couple days for recheck. You will need repeat labwork done. Return for increased pain, fever, vomiting, worsening symptoms or other concerns. Is patient prescribed a controlled substance at d/c from ED?: No Referrals: Natalie Menjivar MD [Primary Care Provider] - 1-2 days Aleksandar Alatorre MD [STAFF PHYSICIAN] - 1-2 days Josh Shin MD [STAFF PHYSICIAN] - 1-2 days Time of Disposition: 10:47
[2022-04-17 09:28] LABS: Basophils % (A) 0 %; Eosinophils # (A) 0.1 k/uL (0-0.7); Eosinophils % (A) 1 %; HCT 46.1 % (39.0-53.0); HGB 15.9 gm/dL (13.0-17.5); Lymphocytes # (A) 0.4 k/uL (1.0-4.8); Lymphocytes % (A) 5 %; MCHC 34.5 g/dL (31.0-37.0); MCV 89.9 fL (80.0-100.0); Mean Platelet Volume 7.9; Monocytes # (A) 0.3 k/uL (0-1.0); Monocytes % (A) 3 %; Neutrophils # (A) 7.5 k/uL (1.3-7.7); Neutrophils % (A) 90 %; Platelet Count 169 k/uL (150-450); RBC 5.12 m/uL (4.30-5.90); RDW 12.4 % (11.5-15.5); WBC 8.3 k/uL (3.8-10.6)
[2022-04-17 09:37] LABS: INR 0.9 (<1.2); Prothrombin Time 9.9 sec (9.0-12.0)
[2022-04-17 09:38] LABS: Albumin 4.1 g/dL (3.5-5.0); Calcium 8.6 mg/dL (8.4-10.2); Potassium 4.2 mmol/L (3.5-5.1); Total Bilirubin 1.7 mg/dL (0.2-1.3)
[2022-04-17 09:50] LABS: Appearance,Urine Clear (Clear); Bilirubin,Urine Negative (Negative); Blood,Urine Moderate (Negative); Color,Urine Light Yellow; Glucose,Urine (UA) Negative (Negative); Ketones,Urine Negative (Negative); Leukocyte Esterase,Urine Trace (Negative); Mucus,Urine Rare /hpf; Nitrite,Urine Negative (Negative); PH, Urine 6.5 (5.0-8.0); Protein,Urine Trace (Negative); RBC,Urine 51 /hpf (0-5); Squamous Epithelial Cell,Urine <1 /hpf (0-4); WBC,Urine 6 /hpf (0-5)
--- NOTE | 2022-04-17 10:20 | CT ---
EXAMINATION TYPE: CT abdomen pelvis w con CT DLP: 1112.1 mGycm, Automated exposure control for dose reduction was used. DATE OF EXAM: 04/17/2022 10:09 AM COMPARISON: CT chest abdomen pelvis 03/09/2022. CLINICAL INDICATION:Male, 76 years old with history of abdominal pain; pain TECHNIQUE: Standard CT of the abdomen and pelvis following the administration of 80 cc of Isovue 30 0 IV contrast material. Coronal and sagittal reformats were performed. FINDINGS: LOWER CHEST: Unremarkable ABDOMEN LIVER: Stable scattered hypodense lesions of the liver with largest measuring up to 14 mm consistent with cysts. GALLBLADDER AND BILE DUCTS: The gallbladder is surgically absent. No biliary duct dilatation. PANCREAS: Hypodense pancreatic tail mass is again demonstrated measuring up to 4.7 cm, unchanged. No pancreatic ductal dilatation or parenchymal calcifications. SPLEEN: Unremarkable. ADRENAL GLANDS: Unremarkable. KIDNEYS AND URETERS: Mild left hydroureteronephrosis with an obstructing 5 mm calculus at the uretero pelvic junction. There is associated perinephric and periureteral fat stranding appears slightly joy yed enhancement of the left kidney compared to the right. Multiple nonobstructive bilateral renal jo ann culi identified with largest in the left kidney measuring up to 1.9 cm in largest in the right kidney measuring up to 1.6 cm. PELVIS BLADDER: Incompletely distended but grossly unremarkable. REPRODUCTIVE: Prostate is enlarged in size measuring 5.1 cm in transverse dimension. Coarse calcifica tions demonstrated within the prostate gland. ABDOMEN & PELVIS STOMACH AND BOWEL: Small hiatal hernia, duodenum is unremarkable. Distal colonic diverticulosis witho ut evidence for acute diverticulitis. The appendix is not visualized consistent reported appendectomy . No evidence of bowel obstruction. PERITONEUM: No evidence of pneumoperitoneum or free fluid. VASCULATURE: Moderate atherosclerotic calcifications are present throughout the abdominal aorta and i ts branches. No evidence of aortic aneurysm. 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 MUSCULOSKELETAL: No acute osseous abnormalities. Mild disc degeneration changes are present throughou t the thoracolumbar spine. No aggressive osseous lesion. LYMPH NODES: No gross evidence for lymphadenopathy. SOFT TISSUE/ABDOMINAL WALL: Small fat filled umbilical hernia. IMPRESSION: 1. Mild left hydroureteronephrosis with an obstructing 5 mm calculus at the ureteropelvic junction. Multiple additional bilateral nonobstructing renal calculi. 2. Unchanged pancreatic tail mass measuring up to 4.7 cm. No definitive evidence for metastatic disea se of this time. 3. Colonic diverticulosis without evidence for acute diverticulitis. 4. Prostatomegaly. 5. 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
[2022-04-17 11:08] VITALS: BP 132/88; PULSE 102
== END 2022-04-17 11:08 | disposition home or self-care (01) ==
LOC: EC 08:28
DX: N20.1 Calculus of ureter (principal); K21.9 Gastro-esophageal reflux disease without esophagitis; I10 Essential (primary) hypertension; E07.9 Disorder of thyroid, unspecified; Z79.82 Long term (current) use of aspirin; Z79.890 Hormone replacement therapy; Z79.899 Other long term (current) drug therapy
CPT/HCPCS: 36415; 93005; 80053; 82150; 83690; 85025; 85610; 85730; 81001; 74177; 99284; 96374; C9113; Q9967

== ENCOUNTER → 2022-04-22 | Outpatient (CLI) | payer MEDICARE ==
--- NOTE | 2022-04-22 21:29 | XR ---
EXAMINATION TYPE: XR KUB DATE OF EXAM: 04/22/2022 Comparison: 09/08/2021 Clinical History: 76-year-old male N20.1 CALCULUS OF URETER Findings: Bilateral nephrolithiasis present. Largest aggregate calcification on the right measures 2.4 cm, naya lar to prior. The largest aggregate on the left measures up to 3.1 cm, also similar to prior. Additional smaller bilateral renal calculi are present. There is moderate overall stool burden. Cholecystectomy clips. Vascular calcifications in the pelvis. Impression: Similar bilateral nephrolithiasis. Moderate stool burden; possible constipation.
--- NOTE | 2022-04-23 13:13 | P.GSHP ---
History of Present Illness H&P Date: 04/23/22 76 yo male with stone disease. Has bilateral large volume renal stones that he has chosen to observe due to treatment for stage one pancreatic cancer. A small stone[5mm] recently has passed into his left ureter and is causing pain and colic. We discussed treatment options and he is coming for left ureteroscopy with laser lithotripsy left - Constitutional Constitutional: Denies chills, Denies fever - EENT Eyes: denies blurred vision, denies pain Ears, nose, mouth and throat: Denies headache, Denies sore throat - Cardiovascular Cardiovascular: Denies chest pain, Denies shortness of breath - Respiratory Respiratory: Denies cough, Denies 7 - Gastrointestinal Gastrointestinal: Denies abdominal pain, Denies diarrhea, Denies nausea, Denies vomiting - Genitourinary (Female) Genitourinary: Denies dysuria, Denies hematuria - Genitourinary (Male) Genitourinary: Denies dysuria, Denies hematuria - Musculoskeletal Musculoskeletal: Denies myalgias - Integumentary Integumentary: Denies pruritus, Denies rash - Neurological Neurological: Denies numbness, Denies weakness - Psychiatric Psychiatric: Denies anxiety, Denies depression - Endocrine Endocrine: Denies fatigue, Denies weight change Past Medical History Past Medical History: Cancer, GERD/Reflux, Hypertension, Thyroid Disorder Additional Past Medical History / Comment(s): kidney stones, Pancreatic Cancer History of Any Multi-Drug Resistant Organisms: None Reported Past Surgical History: Adenoidectomy, Appendectomy, Cholecystectomy, Tonsillectomy Additional Past Surgical History / Comment(s): lithotripsy Bilateral cataract surgery with lens implant, Corneal surgery Past Psychological History: No Psychological Hx Reported Smoking Status: Never smoker Past Alcohol Use History: None Reported Past Drug Use History: None Reported Medications and Allergies Home Medications Medication Instructions Recorded Confirmed Type Aspirin EC [Ecotrin Low Dose] 162 mg PO DAILY 12/05/20 04/03/22 History Cholecalciferol [Vitamin D3 (25 50 mcg PO DAILY 12/05/20 04/03/22 History Mcg = 1000 Iu)] Levothyroxine Sodium [Synthroid] 75 mcg PO MOTUWETHFRSA 12/05/20 04/03/22 History Levothyroxine Sodium [Synthroid] 150 mcg PO CASE 12/05/20 04/03/22 History Multivit-Min/Folic/Vit K/Lycop 1 tab PO W/LUNCH 12/05/20 04/03/22 History [Men's Multivitamin Tablet] NIFEdipine [NIFEdipine ER] 30 mg PO DAILY 12/05/20 04/03/22 History Ofloxacin 0.3% Ophth Soln [Ocuflox 1 drop LEFT EYE QID 12/05/20 04/03/22 History Ophth Soln] Omeprazole Magnesium [PriLOSEC] 20 mg PO DAILY 12/05/20 04/03/22 History Allergies Allergy/AdvReac Type Severity Reaction Status Date / Time No Known Allergies Allergy Verified 04/17/22 08:37 Surgical - Exam - General well developed, moderate distress - Eyes normal ocular movement, no icteric - ENT no hearing loss, no congestion - Neck no masses, trachea midline - Respiratory normal respiratory effort, clear to auscultation - Abdomen Abdomen: soft, non tender, no guarding, no rigid, no rebound - Integumentary no rash, no abnormal pigmentation - Neurologic no disoriented, no combative - Psychiatric oriented to time, oriented to person, oriented to place, speech is normal, memory intact Results - Imaging Abdominal x-ray: report reviewed, image reviewed CT scan - abdomen: report reviewed, image reviewed CT scan - pelvis: report reviewed, image reviewed Assessment and Plan Assessment: Imprssion: left ureteral stone with hydro and colic. Plan: left ureterocopy with laser lithotripsy
== END | disposition home or self-care (01) ==
LOC: RADXRMAIN 16:21
PROVIDERS: ATTEND Urology
DX: N20.0 Calculus of kidney (principal)
CPT/HCPCS: 74018

== ENCOUNTER 2022-04-24 09:47 | Day surgery (SDC) | payer MEDICARE ==
--- NOTE | 2022-04-24 10:11 | XR ---
EXAMINATION TYPE: XR KUB DATE OF EXAM: 04/24/2022 Comparison: 04/22/2022 Clinical History: 76-year-old male with kidney stones, preoperative Findings: Bilateral nephrolithiasis again present present. Largest aggregate calcification on the right measure s 2.8 x 2.0 cm, similar to prior. The largest aggregate on the left measures 3.1 x 1.8 cm, similar to prior. Additional smaller bilateral renal calculi are again present. There is moderate overall stool burden. Cholecystectomy clips. Vascular calcifications in the pelvis. Impression: 1. Similar bilateral nephrolithiasis. 2. Moderate stool burden.
[2022-04-24] MEDS ORDERED: LACTATED RINGERS 1,000 ML IV ONE ×3 (10:44→15:00)
[2022-04-24 10:48] VITALS: TEMP 99.8
[2022-04-24] MEDS ORDERED: LIDOCAINE 2% INJ 20 MG/ML (2 ML VIAL) ONE (14:10)
[2022-04-24] MEDS ORDERED: HYDROmorphone (PF) 1 MG/ML ONE (14:10)
[2022-04-24] MEDS ORDERED: PROPOFOL 10 MG/ML 20 ML VIAL IV ONE (14:10)
[2022-04-24] MEDS ORDERED: MIDAZOLAM 2 MG/2 ML VIAL ONE (14:10)
[2022-04-24] MEDS ORDERED: fentaNYL (PF) 50 MCG/ML 2 ML AMP ONE (14:10)
--- NOTE | 2022-04-24 15:04 | P.OP ---
Date of Procedure: 04/24/22 Preoperative Diagnosis: Left ureteral calculus with obstruction Postoperative Diagnosis: Same Procedure(s) Performed: Cystoscopy, left ureteroscopy with laser lithotripsy, placement of 6 x 26 stent left Anesthesia: YOSEF Surgeon: Gokul Carcamo Estimated Blood Loss (ml): 10 Pathology: other (Stone) Condition: stable Disposition: PACU Indications for Procedure: Patient is 76. He has a history of stones. Bilateral large round renal stones. He has a 6 mm mid to distal ureteral stone on the left side is causing pain. He also has pancreatic cancer chemotherapy and subsequent Whipple procedure after the chemotherapy. Because of the pain he comes for ureteroscopy laser lithotripsy. The renal stones will be dealt with at a later time Description of Procedure: Patient brought to the operating suite. Given general anesthesia. Placed lithotomy position with sterile prep and drape. Cystoscopy Foroblique lens and 21-Danish sheath identifies a tight meatus which is dilated. The rest of the urethra is normal. The prostate shows some obstruction. The bladder wall shows some mild trabeculation. Both ureteral orifices identified and normal. An 035 wires passed up into the left distal ureter but meets obstruction where the stone was seen on fluoroscopy. I then passed the semirigid scope into the left distal ureter. There stone embedded in the left ureteral wall distal to where the stone was noted. This is broken up into tiny pieces and evacuated with the 375 g laser probe. I then pass up to the obstructing stone and I also used the same laser probe to break this into tiny pieces and flushed out of the ureter. At the end of procedure other than dust there are no remaining stones. Due to the embedded stone in the ureter I will leave a stent . I removed the ureteroscope. I then reloaded the cystoscope and then 035 wires passed up into the left kidney. Over the wires passed a 6 x 26 double-J catheter into the left renal pelvis.. The patient's awake and returned recovery room good condition. Stone sent to pathology. The patient tolerated procedure well be discharged home upon recovery and found the office in one week for left stent removal
--- NOTE | 2022-04-24 15:28 | FL ---
Intraoperative/procedural fluoroscopic services were provided for left ureteral stent placement. Tota l fluoroscopy time is 23 seconds with a total of 7 submitted images to PACS. Please see the operative note for further details.
[2022-04-24 16:08] VITALS: RESP 18
[2022-04-24 16:35] VITALS: BP 117/78; PULSE 99
--- NOTE | 2022-04-28 08:52 | P.GSHP ---
History of Present Illness H&P Date: 04/23/22 76 yo male with stone disease. Has bilateral large volume renal stones that he has chosen to observe due to treatment for stage one pancreatic cancer. A small stone[5mm] recently has passed into his left ureter and is causing pain and colic. We discussed treatment options and he is coming for left ureteroscopy with laser lithotripsy left - Constitutional Constitutional: Denies chills, Denies fever - EENT Eyes: denies blurred vision, denies pain Ears, nose, mouth and throat: Denies headache, Denies sore throat - Cardiovascular Cardiovascular: Denies chest pain, Denies shortness of breath - Respiratory Respiratory: Denies cough, Denies 7 - Gastrointestinal Gastrointestinal: Denies abdominal pain, Denies diarrhea, Denies nausea, Denies vomiting - Genitourinary (Female) Genitourinary: Denies dysuria, Denies hematuria - Genitourinary (Male) Genitourinary: Denies dysuria, Denies hematuria - Musculoskeletal Musculoskeletal: Denies myalgias - Integumentary Integumentary: Denies pruritus, Denies rash - Neurological Neurological: Denies numbness, Denies weakness - Psychiatric Psychiatric: Denies anxiety, Denies depression - Endocrine Endocrine: Denies fatigue, Denies weight change Past Medical History Past Medical History: Cancer, GERD/Reflux, Hypertension, Thyroid Disorder Additional Past Medical History / Comment(s): kidney stones, Pancreatic Cancer History of Any Multi-Drug Resistant Organisms: None Reported Past Surgical History: Adenoidectomy, Appendectomy, Cholecystectomy, Tonsillectomy Additional Past Surgical History / Comment(s): lithotripsy Bilateral cataract surgery with lens implant, Corneal surgery Past Psychological History: No Psychological Hx Reported Smoking Status: Never smoker Past Alcohol Use History: None Reported Past Drug Use History: None Reported Medications and Allergies Home Medications Medication Instructions Recorded Confirmed Type Aspirin EC [Ecotrin Low Dose] 162 mg PO DAILY 12/05/20 04/23/22 History Cholecalciferol [Vitamin D3 (25 50 mcg PO DAILY 12/05/20 04/23/22 History Mcg = 1000 Iu)] Levothyroxine Sodium [Synthroid] 75 mcg PO MOTUWETHFRSA 12/05/20 04/23/22 History Levothyroxine Sodium [Synthroid] 150 mcg PO CASE 12/05/20 04/24/22 History Multivit-Min/Folic/Vit K/Lycop 1 tab PO W/LUNCH 12/05/20 04/23/22 History [Men's Multivitamin Tablet] NIFEdipine [NIFEdipine ER] 30 mg PO HS 12/05/20 04/23/22 History Omeprazole Magnesium [PriLOSEC] 20 mg PO DAILY 12/05/20 04/23/22 History Prednisolone Acetate/Pf 1 drop BOTH EYES DAILY 04/23/22 04/23/22 History [Prednisolone Acet 1% Eye Drop] Unk Chemo Infusion 1 bag IV WEEKLY 04/23/22 04/23/22 History cycloSPORINE 0.05% OPHTH SOLN 1 applicator BOTH EYES Q12H 04/23/22 04/23/22 History [Restasis] Allergies Allergy/AdvReac Type Severity Reaction Status Date / Time No Known Allergies Allergy Verified 04/23/22 14:24 Surgical - Exam - General well developed, moderate distress - Eyes normal ocular movement, no icteric - ENT no hearing loss, no congestion - Neck no masses, trachea midline - Respiratory normal respiratory effort, clear to auscultation - Abdomen Abdomen: soft, non tender, no guarding, no rigid, no rebound - Integumentary no rash, no abnormal pigmentation - Neurologic no disoriented, no combative - Psychiatric oriented to time, oriented to person, oriented to place, speech is normal, memory intact Results - Imaging Abdominal x-ray: report reviewed, image reviewed CT scan - abdomen: report reviewed, image reviewed CT scan - pelvis: report reviewed, image reviewed Assessment and Plan Assessment: Imprssion: left ureteral stone with hydro and colic. Plan: left ureterocopy with laser lithotripsy
== END 2022-04-24 16:45 | disposition home or self-care (01) ==
LOC: OR 09:47
PROVIDERS: ATTEND Urology
DX: N13.2 Hydronephrosis with renal and ureteral calculous obstruction (principal); I10 Essential (primary) hypertension; Z79.82 Long term (current) use of aspirin
CPT/HCPCS: 82365; 74018; 52356; C2625; C1769; J2250; J0690; J3010; J1170; J2704; J2001

== ENCOUNTER 2022-09-14 21:46 | Emergency (ER) | payer MEDICARE ==
[2022-09-14 23:24] LABS: Basophils # (A) 0.1 k/uL (0-0.2); Basophils % (A) 1 %; Eosinophils # (A) 0.4 k/uL (0-0.7); Eosinophils % (A) 4 %; HCT 37.6 % (39.0-53.0); HGB 11.7 gm/dL (13.0-17.5); Hypochromasia Slight; Lymphocytes # (A) 1.2 k/uL (1.0-4.8); Lymphocytes % (A) 13 %; MCH 29.8 pg (25.0-35.0); Mean Platelet Volume 8.9; Monocytes # (A) 0.8 k/uL (0-1.0); Monocytes % (A) 8 %; Neutrophils # (A) 6.9 k/uL (1.3-7.7); Neutrophils % (A) 72 %; Platelet Count 619 k/uL (150-450); RBC 3.92 m/uL (4.30-5.90); RDW 15.8 % (11.5-15.5); WBC 9.5 k/uL (3.8-10.6)
[2022-09-14 23:37] LABS: ALT 27 U/L (4-49); AST 38 U/L (17-59); African American GFR (CKD) >90 (>60 ml/min/1.73 sqM); Alkaline Phosphatase 62 U/L (38-126); Anion Gap 9 mmol/L; Blood Urea Nitrogen 20 mg/dL (9-20); Calcium 9.7 mg/dL (8.4-10.2); Carbon Dioxide 26 mmol/L (22-30); Chloride 102 mmol/L (98-107); Glucose 106 mg/dL (74-99); Lipase 95 U/L (23-300); Magnesium 1.8 mg/dL (1.6-2.3); Non-African American GFR(CKD) >90 (>60 ml/min/1.73 sqM); Potassium 5.1 mmol/L (3.5-5.1); Sodium 137 mmol/L (137-145); Total Bilirubin 0.8 mg/dL (0.2-1.3); Total Protein 7.1 g/dL (6.3-8.2)
[2022-09-15 00:44] LABS: Appearance,Urine Cloudy (Clear); Bilirubin,Urine Negative (Negative); Blood,Urine Moderate (Negative); Color,Urine Yellow; Glucose,Urine (UA) Negative (Negative); Ketones,Urine Negative (Negative); Leukocyte Esterase,Urine Large (Negative); Mucus,Urine Few /hpf; Nitrite,Urine Negative (Negative); PH, Urine 6.5 (5.0-8.0); Protein,Urine Trace (Negative); RBC,Urine 118 /hpf (0-5); Specific Gravity,Urine 1.015 (1.001-1.035); Squamous Epithelial Cell,Urine <1 /hpf (0-4); Urobilinogen,Urine <2.0 mg/dL (<2.0); WBC,Urine 73 /hpf (0-5)
[2022-09-15] MEDS ORDERED: MORPHINE SULFATE 4 MG/ML SYRINGE IVP STA ×2 (00:59→02:00)
--- NOTE | 2022-09-15 01:21 | CT ---
EXAM: CT Abdomen and Pelvis With Intravenous Contrast CLINICAL HISTORY: ITS.REASON CT Reason: Acute abdominal pain, constipation TECHNIQUE: Axial computed tomography images of the abdomen and pelvis with intravenous contrast. CTDI is 19.3 mGy and DLP is 935.3 mGy-cm. This CT exam was performed using one or more of the following dose reduction techniques: automated exposure control, adjustment of the mA and/or kV according to patient size, and/or use of iterative reconstruction technique. COMPARISON: Comparison is made to prior CT scan of the abdomen and pelvis from April 17, 2022. FINDINGS: Lung bases: Atelectasis of the dependent lung bases. No mass. No consolidation. ABDOMEN: Liver: Hepatic steatosis with simple renal cyst. No mass. Gallbladder and bile ducts: Status post cholecystectomy. No ductal dilation. Pancreas: Unremarkable. No mass. No ductal dilation. Spleen: Status post splenectomy. Adrenals: Unremarkable. No mass. Kidneys and ureters: Bilateral nephrolithiasis. No solid mass. No hydronephrosis. Stomach and bowel: There is a large amount of stool within the distal sigmoid colon and rectum with mild perirectal fat stranding. Diverticulosis of the descending and sigmoid colon. There is thickening and edema of the distal transverse and proximal descending colon wall with mild inflammation of the surrounding fat. PELVIS: Appendix: No findings to suggest acute appendicitis. Bladder: There are 3 calculi within the dependent urinary bladder. No mass. Reproductive: Unremarkable as visualized. ABDOMEN and PELVIS: Intraperitoneal space: Unremarkable. No free air. No significant fluid collection. Bones/joints: No acute fracture. No dislocation. Soft tissues: There is an 11 mm fat-containing umbilical hernia. There is a tiny amount of subcutaneous air in the right anterior abdominal wall fat. There is a small fat-containing right inguinal hernia. Vasculature: Unremarkable. No abdominal aortic aneurysm. Lymph nodes: There are numerous prominent lymph nodes scattered throughout the mesenteric fat. IMPRESSION: Findings concern for constipation and possible impaction. Findings concern for colitis of the distal transverse colon and proximal descending colon, which may be infectious or inflammatory etiologies. Secondary mesenteric adenitis. Bilateral nephrolithiasis. There are a few calculi within the urinary bladder. Hepatic steatosis. Diverticulosis of the sigmoid colon.
[2022-09-15] MEDS ORDERED: NA PHOS,M-B/NA PHOS,DI-BA 133 ML ENEMA RECTAL STA (02:05)
[2022-09-15] MEDS ORDERED: SODIUM CHLORIDE 0.9% 1,000 ML IV ONE ×2 (02:36→06:49)
--- NOTE | 2022-09-15 02:36 | ED ---
General Adult HPI - General Source: patient Mode of arrival: ambulatory Limitations: no limitations <Catalino Rodriguez - Last Filed: 09/15/22 06:53> <Tj Amador - Last Filed: 09/15/22 12:12> - General Chief complaint: Abdominal Pain Stated complaint: Constipation Time Seen by Provider: 09/14/22 22:20 - History of Present Illness Initial comments: This is a 77-year-old with a past medical history including hypertension and previous and recent resection of his pancreatic cancer status post chemotherapy presents emergency department for constipation. The patient stated that he has not had a bowel movement in over 6 days and the patient's and son were at the bedside and did confirm this. The patient himself stated that he had generalized abdominal pain without any nausea or vomiting. The patient did state that he took multiple senna doses as well as multiple MiraLAX doses without any relief. The patient did not do any enema kids at home. The patient did state that he had issues with constipation prior to the surgery but stated that the constipation was improved after the surgery however over the last week has worsened once again. The patient himself was resting in bed comfortably without any further acute distress. (Catalino Rodriguez) - Related Data Home Medications Medication Instructions Recorded Confirmed Aspirin EC [Ecotrin Low Dose] 162 mg PO DAILY 12/05/20 04/23/22 Cholecalciferol [Vitamin D3 (25 50 mcg PO DAILY 12/05/20 04/23/22 Mcg = 1000 Iu)] Levothyroxine Sodium [Synthroid] 75 mcg PO MOTUWETHFRSA 12/05/20 04/23/22 Levothyroxine Sodium [Synthroid] 150 mcg PO CASE 12/05/20 04/24/22 Multivit-Min/Folic/Vit K/Lycop 1 tab PO W/LUNCH 12/05/20 04/23/22 [Men's Multivitamin Tablet] NIFEdipine [NIFEdipine ER] 30 mg PO HS 12/05/20 04/23/22 Omeprazole Magnesium [PriLOSEC] 20 mg PO DAILY 12/05/20 04/23/22 Prednisolone Acetate/Pf 1 drop BOTH EYES DAILY 04/23/22 04/23/22 [Prednisolone Acet 1% Eye Drop] Unk Chemo Infusion 1 bag IV WEEKLY 04/23/22 04/23/22 cycloSPORINE 0.05% OPHTH SOLN 1 applicator BOTH EYES Q12H 04/23/22 04/23/22 [Restasis] Previous Rx's Medication Instructions Recorded Ciprofloxacin HCl [Cipro] 500 mg PO Q12HR #14 tablet 09/15/22 HYDROcodone/APAP 5-325MG [[place] 1 tab PO Q6HR PRN 3 Days #6 tab 09/15/22 5-325] Lactulose 20 gm PO BID #600 ml 09/15/22 Allergies Allergy/AdvReac Type Severity Reaction Status Date / Time No Known Allergies Allergy Verified 09/14/22 22:11 Review of Systems ROS Other: All systems not noted in ROS Statement are negative. <Catalino Rodriguez - Last Filed: 09/15/22 06:53> ROS Other: All systems not noted in ROS Statement are negative. <Tj Amador - Last Filed: 09/15/22 12:12> ROS Statement: Those systems with pertinent positive or pertinent negative responses have been documented in the HPI. Past Medical History Past Medical History: Cancer, GERD/Reflux, Hypertension, Thyroid Disorder Additional Past Medical History / Comment(s): kidney stones, Pancreatic Cancer History of Any Multi-Drug Resistant Organisms: None Reported Past Surgical History: Adenoidectomy, Appendectomy, Cholecystectomy, Tonsillectomy Additional Past Surgical History / Comment(s): lithotripsy Bilateral cataract surgery with lens implant, Corneal surgery, pancreatic surgery 08/20/22 Past Anesthesia/Blood Transfusion Reactions: No Reported Reaction Past Psychological History: No Psychological Hx Reported Smoking Status: Never smoker Past Alcohol Use History: None Reported Past Drug Use History: None Reported - Past Family History Father Family Medical History: No Reported History Mother Family Medical History: Cancer Additional Family Medical History / Comment(s): cancer <Catalino Rodriguez - Last Filed: 09/15/22 06:53> General Exam Limitations: no limitations General appearance: alert, in no apparent distress Head exam: Present: atraumatic, normocephalic, normal inspection Eye exam: Present: normal appearance, PERRL Pupils: Present: normal accommodation ENT exam: Present: normal exam, normal oropharynx, mucous membranes moist Neck exam: Present: normal inspection, full ROM Respiratory exam: Present: normal lung sounds bilaterally Cardiovascular Exam: Present: regular rate, normal rhythm, normal heart sounds GI/Abdominal exam: Present: soft, tenderness (Tender to palpation throughout the abdomen) Extremities exam: Present: normal inspection, full ROM Back exam: Present: normal inspection, full ROM Neurological exam: Present: alert, oriented X3, CN II-XII intact Psychiatric exam: Present: normal affect, normal mood Skin exam: Present: warm, dry <Catalino Rodriguez - Last Filed: 09/15/22 06:53> Course Vital Signs 09/14/22 09/15/22 09/15/22 22:07 01:12 02:00 Temperature 97.4 F L Pulse Rate 87 116 H 72 Respiratory 16 22 Rate Blood Pressure 113/73 127/90 127/80 O2 Sat by Pulse 96 98 Oximetry 09/15/22 09/15/22 09/15/22 02:30 02:35 02:51 Temperature Pulse Rate 57 L 72 99 Respiratory 16 18 18 Rate Blood Pressure 85/56 108/77 147/89 O2 Sat by Pulse 99 99 98 Oximetry 09/15/22 09/15/22 09/15/22 04:31 05:02 05:48 Temperature Pulse Rate 113 H 107 H 112 H Respiratory 14 18 20 Rate Blood Pressure 124/82 162/97 142/79 O2 Sat by Pulse 97 97 99 Oximetry 09/15/22 09/15/22 09/15/22 06:53 07:03 07:29 Temperature 97.8 F Pulse Rate 114 H 117 H 117 H Respiratory 18 18 Rate Blood Pressure 151/99 152/96 122/87 O2 Sat by Pulse 99 97 Oximetry 09/15/22 09/15/22 09/15/22 09:10 10:41 11:37 Temperature Pulse Rate 120 H 128 H 140 H Respiratory 16 18 18 Rate Blood Pressure 166/104 135/80 142/98 O2 Sat by Pulse 96 98 Oximetry Medical Decision Making - Lab Data Result diagrams: 09/14/22 23:08 09/14/22 23:08 <Catalino Rodriguez - Last Filed: 09/15/22 06:53> - Lab Data Result diagrams: 09/14/22 23:08 09/14/22 23:08 <Tj Amador - Last Filed: 09/15/22 12:12> - Medical Decision Making Was pt. sent in by a medical professional or institution (, PA, SHOVEL HANDLE ASSEMBLER, urgent care, hospital, or jail...) When possible be specific @ -[No] Did you speak to anyone other than the patient for history (EMS, parent, family, police, friend...)? What history was obtained from this source @ -Yes, patient's and son were at the bedside and confirmed the patient has been constipated the last 6 days. Did you review nursing and triage notes (agree or disagree)? Why? @ -[I reviewed and agree with nursing and triage notes] Were old charts reviewed (outside hosp., previous admission, EMS record, old EKG, old radiological studies, urgent care reports/EKG's, jail records)? Report findings @ -[No old charts were reviewed] Differential Diagnosis (chest pain, altered mental status, abdominal pain women, abdominal pain men, vaginal bleeding, weakness, fever, dyspnea, syncope, headache, dizziness, GI bleed, back pain, seizure, CVA, palpatations, mental health)? @ -Acute constipation, small bowel obstruction, diverticulitis EKG interpreted by me (3pts min.). @ -None X-rays interpreted by me (1pt min.). @ -[None done] CT interpreted by me (1pt min.). @ -CT of the abdomen and pelvis with IV contrast was obtained and was interpreted by myself showing findings concerning for constipation and possible impaction. There was also concern for colitis of the distal transverse colon and proximal descending colon which may be infectious or inflammatory. There is bilateral nephrolithiasis and a few A within the urinary bladder. There was diverticulosis of the sigmoid colon. U/S interpreted by me (1pt. min.). @ -[None done] What testing was considered but not performed or refused? (CT, X-rays, U/S, labs)? Why? @ -[None] What meds were considered but not given or refused? Why? @ -[None] Did you discuss the management of the patient with other professionals (professionals i.e. , PA, SHOVEL HANDLE ASSEMBLER, lab, RT, psych nurse, social media sr strategy manager, epic willow analyst, teacher, neighborhood conservation officer, case monitor)? Give summary @ -Yes, Dr. Menjivar was contacted regarding the patient Was smoking cessation discussed for >3mins.? @ -[No] Was critical care preformed (if so, how long)? @ -[No] Were there social determinants of health that impacted care today? How? (Homelessness, low income, unemployed, alcoholism, drug addiction, transportatio n, low edu. Level, literacy, decrease access to med. care, senior living, rehab)? @ -[No] Was there de-escalation of care discussed even if they declined (Discuss DNR or withdrawal of care, Hospice)? DNR status @ -[No] What co-morbidities impacted this encounter? (DM, HTN, Smoking, COPD, CAD, Cancer, CVA, ARF, Chemo, Hep., AIDS, mental health diagnosis, sleep apnea, morbid obesity)? @ -Hypertension, previous pancreatic cancer status post surgical resection and chemotherapy Was patient admitted / discharged? Hospital course, mention meds given and route, prescriptions, significant lab abnormalities, going to OR and other pertinent info. @ -The patient was seen and evaluated in emergency department. Physical exam, the patient was resting in bed without any acute distress. Vital signs admission were stable. Due to the nature the patient's complaints in the settin g of generalized abdominal pain, laboratory workup and CT scan of the abdomen were obtained. All laboratory workup was largely within normal limits however computed tomography scan showed likely constipation with possible impaction. There was also known nephrolithiasis but this was not new for the patient. Due to the computed tomography scan findings, the patient was given enema with milk of molasses. On reevaluation, the patient only had a small bowel movement. The patient did have a near-syncopal episode while on the commode and needed to relax back in bed. The patient did have a second enema performed with minimal output. I did perform a digital exam and had a manual disimpaction performed however only minimal stool was obtained there was a significant stool burden noted more proximal from my finger. Due to the patient's continued discomfort and failed enemas, the patient's primary care physician, Dr. Menjivar was contacted. He did recommend magnesium citrate and a prescription for lactulose to be taken at home. The patient was given a full dose of magnesium citrate and will be closely monitored for a bowel movement. Was patient has a bowel movement and the patient did receive a second liter of normal saline fluid, the patient will be discharged to follow-up with his surgeon tomorrow as previous he scheduled. The patient was also advised report back to the emergency department if his pain and symptoms became acutely worse. The patient also given a prescription for [place] to be taken at home for severe pain. The patient was agreeable to this as was his . The patient was discharged home in stable condition. Undiagnosed new problem with uncertain prognosis? @ -[No] Drug Therapy requiring intensive monitoring for toxicity (Heparin, Nitro, Insulin, Cardizem)? @ -[No] Were any procedures done? @ -[No] Diagnosis/symptom? @ -Constipation Acute, or Chronic, or Acute on Chronic? @ -Acute on chronic Uncomplicated (without systemic symptoms) or Complicated (systemic symptoms)? @ -Uncomplicated Side effects of treatment? @ -[No] Exacerbation, Progression, or Severe Exacerbation? @ -[No] Poses a threat to life or bodily function? How? (Chest pain, [place], [place], pneumonia, PE, COPD, DKA, ARF, appy, cholecystitis, CVA, Diverticulitis, Homicidal, Suicidal, threat to staff... and all critical care pts) @ -[No] (Catalino Rodriguez) EKG was interpreted by myself shows a sinus tachycardia with frequent PVCs at a rate of 130 bpm WI interval is 173 QRSs 89 Q-T intervals 391 QTC is 460. Patient's EKG shows no ST segment elevation or depression. Patient's heart rate remained at about 120-130 beats a minute while syndrome patient states this is been his heart rate since she's had surgery for his killian creatic cancer. I spoke with Dr. Menjivar he agreed that if the patient was completely comfortable which she is that he could follow-up with him in the office. Patient will go home with a leg bases been instructed to follow-up with Dr. Menjivar this week and urology as well. Patient also received Rocephin in the emergency department. (Tj Amador) - Lab Data Lab Results 09/14/22 09/14/22 09/14/22 Range/Units 23:08 23:08 23:58 WBC 9.5 (3.8-10.6) k/uL RBC 3.92 L (4.30-5.90) m/uL Hgb 11.7 L (13.0-17.5) gm/dL Hct 37.6 L (39.0-53.0) % MCV 96.0 (80.0-100.0) fL MCH 29.8 (25.0-35.0) pg MCHC 31.0 (31.0-37.0) g/dL RDW 15.8 H (11.5-15.5) % Plt Count 619 H (150-450) k/uL MPV 8.9 Neutrophils % 72 % Lymphocytes % 13 % Monocytes % 8 % Eosinophils % 4 % Basophils % 1 % Neutrophils # 6.9 (1.3-7.7) k/uL Lymphocytes # 1.2 (1.0-4.8) k/uL Monocytes # 0.8 (0-1.0) k/uL Eosinophils # 0.4 (0-0.7) k/uL Basophils # 0.1 (0-0.2) k/uL Hypochromasia Slight Sodium 137 (137-145) mmol/L Potassium 5.1 (3.5-5.1) mmol/L Chloride 102 (98-107) mmol/L Carbon Dioxide 26 (22-30) mmol/L Anion Gap 9 mmol/L BUN 20 (9-20) mg/dL Creatinine 0.57 L (0.66-1.25) mg/dL Est GFR (CKD-EPI)AfAm >90 (>60 ml/min/1.73 sqM) Est GFR (CKD-EPI)NonAf >90 (>60 ml/min/1.73 sqM) Glucose 106 H (74-99) mg/dL Calcium 9.7 (8.4-10.2) mg/dL Magnesium 1.8 (1.6-2.3) mg/dL Total Bilirubin 0.8 (0.2-1.3) mg/dL AST 38 (17-59) U/L ALT 27 (4-49) U/L Alkaline Phosphatase 62 (38-126) U/L Total Protein 7.1 (6.3-8.2) g/dL Albumin 4.0 (3.5-5.0) g/dL Lipase 95 (23-300) U/L Urine Color Yellow Urine Appearance Cloudy (Clear) Urine pH 6.5 (5.0-8.0) Ur Specific [place] 1.015 (1.001-1.035) Urine Protein Trace H (Negative) Urine Glucose (UA) Negative (Negative) Urine Ketones Negative (Negative) Urine Blood Moderate H (Negative) Urine Nitrite Negative (Negative) Urine Bilirubin Negative (Negative) Urine Urobilinogen <2.0 (<2.0) mg/dL Ur Leukocyte Esterase Large H (Negative) Urine RBC 118 H (0-5) /hpf Urine WBC 73 H (0-5) /hpf Ur Squamous Epith Cells <1 (0-4) /hpf Urine Mucus Few H (None) /hpf Disposition Is patient prescribed a controlled substance at d/c from ED?: Yes When asked, does pt state using other controlled substances?: No If prescribed controlled substance>3 days was MAPS reviewed?: Prescribed <3 Days If opioid is for acute pain is fill amount 7 days or less?: Yes If Rx opioid, was Start Talking consent form obtained?: Yes Time of Disposition: 07:00 <Catalino Rodriguez - Last Filed: 09/15/22 06:53> <Tj Amador - Last Filed: 09/15/22 12:12> Clinical Impression: Constipation, Fecal impaction, Urinary retention, Urinary tract infection Disposition: HOME SELF-CARE Condition: Stable Instructions (If sedation given, give patient instructions): Constipation (DC), Urinary Retention in Men (ED) Prescriptions: Ciprofloxacin HCl [Cipro] 500 mg PO Q12HR #14 tablet Lactulose 20 gm PO BID #600 ml HYDROcodone/APAP 5-325MG [[place] 5-325] 1 tab PO Q6HR PRN 3 Days #6 tab PRN Reason: Pain Referrals: Natalie Menjivar MD [Primary Care Provider] - 1-2 days
[2022-09-15] MEDS ORDERED: fentaNYL (PF) 50 MCG/ML 2 ML AMP IVP STA (05:24)
[2022-09-15 06:54] VITALS: TEMP 97.8
[2022-09-15] MEDS ORDERED: MAGNESIUM CITRATE 296 ML BOTTLE PO ONE (07:15)
[2022-09-15] MEDS ORDERED: cefTRIAXone IN SWFI 1,000 MG/10 ML SYRINGE IVP STA ×2 (09:14→09:15)
[2022-09-15] MEDS ORDERED: ONDANSETRON 4 MG/2 ML VIAL IVP STA (10:30)
[2022-09-15 10:41] VITALS: RESP 18
[2022-09-15 13:04] VITALS: BP 161/99; PULSE 124
== END 2022-09-15 13:00 | disposition home or self-care (01) ==
LOC: EC 21:46
DX: K56.41 Fecal impaction (principal); R33.9 Retention of urine, unspecified; N39.0 Urinary tract infection, site not specified; I10 Essential (primary) hypertension; E07.9 Disorder of thyroid, unspecified; K21.9 Gastro-esophageal reflux disease without esophagitis; Z79.890 Hormone replacement therapy; Z79.899 Other long term (current) drug therapy; Z79.82 Long term (current) use of aspirin
CPT/HCPCS: 51798; 36415; 93005; 80053; 83690; 83735; 85025; 81001; 87040; 74177; 99284; 96374; 96375 ×3; 96376; 96361 ×3; J2270; J2405; J0696; J3010; Q9967

== ENCOUNTER 2022-09-22 02:20 | Emergency (ER) | payer MEDICARE ==
[2022-09-22 02:26] VITALS: TEMP 98.1
[2022-09-22 05:55] VITALS: BP 133/82; PULSE 102; RESP 18
--- NOTE | 2022-09-22 05:59 | ED ---
General Adult HPI - General Chief complaint: Urogenital Stated complaint: Cath issue Time Seen by Provider: 09/22/22 02:55 Source: patient, RN notes reviewed, old records reviewed Mode of arrival: ambulatory Limitations: no limitations - History of Present Illness Initial comments: Patient is a 77-year-old male with past medical history remarkable for cancer, presents emergency Department complaining of full catheter malfunction. Was seen 1 week ago and full catheter was placed for urinary retention. States it was leaking from around the catheter in his penis tonight. States he feels the urge to urinate. Is uncertain if he actually needs a replacement catheter. His no other acute complaints at this time. Presents for further evaluation. D enies any pain. Denies any urinary complaints. - Related Data Home Medications Medication Instructions Recorded Confirmed Aspirin EC [Ecotrin Low Dose] 162 mg PO DAILY 12/05/20 04/23/22 Cholecalciferol [Vitamin D3 (25 50 mcg PO DAILY 12/05/20 04/23/22 Mcg = 1000 Iu)] Levothyroxine Sodium [Synthroid] 75 mcg PO [id number] 12/05/20 04/23/22 Levothyroxine Sodium [Synthroid] 150 mcg PO CASE 12/05/20 04/24/22 Multivit-Min/Folic/Vit K/Lycop 1 tab PO W/LUNCH 12/05/20 04/23/22 [Men's Multivitamin Tablet] NIFEdipine [NIFEdipine ER] 30 mg PO HS 12/05/20 04/23/22 Omeprazole Magnesium [PriLOSEC] 20 mg PO DAILY 12/05/20 04/23/22 Prednisolone Acetate/Pf 1 drop BOTH EYES DAILY 04/23/22 04/23/22 [Prednisolone Acet 1% Eye Drop] Unk Chemo Infusion 1 bag IV WEEKLY 04/23/22 04/23/22 cycloSPORINE 0.05% OPHTH SOLN 1 applicator BOTH EYES Q12H 04/23/22 04/23/22 [Restasis] Previous Rx's Medication Instructions Recorded Ciprofloxacin HCl [Cipro] 500 mg PO Q12HR #14 tablet 09/15/22 HYDROcodone/APAP 5-325MG [[place] 1 tab PO Q6HR PRN 3 Days #6 tab 09/15/22 5-325] Lactulose 20 gm PO BID #600 ml 09/15/22 Allergies Allergy/AdvReac Type Severity Reaction Status Date / Time No Known Allergies Allergy Verified 09/14/22 22:11 Review of Systems ROS Statement: Those systems with pertinent positive or pertinent negative responses have been documented in the HPI. Review of Systems: CONST: Denies fever EYES: Denies blurry vision ENT: Denies nasal congestion C/V: Denies Chest pain RESP: Denies shortness of breath GI: Denies abdominal pain : Denies dysuria SKIN: Denies rash. MSK: Denies joint pain. NEURO: Denies headache ROS Other: All systems not noted in ROS Statement are negative. Past Medical History Past Medical History: Cancer, GERD/Reflux, Hypertension, Thyroid Disorder Additional Past Medical History / Comment(s): kidney stones, Pancreatic Cancer History of Any Multi-Drug Resistant Organisms: None Reported Past Surgical History: Adenoidectomy, Appendectomy, Cholecystectomy, Tonsillectomy Additional Past Surgical History / Comment(s): lithotripsy Bilateral cataract surgery with lens implant, Corneal surgery, pancreatic surgery 08/20/22 Past Anesthesia/Blood Transfusion Reactions: No Reported Reaction Past Psychological History: No Psychological Hx Reported Smoking Status: Never smoker Past Alcohol Use History: None Reported Past Drug Use History: None Reported - Past Family History Father Family Medical History: No Reported History Mother Family Medical History: Cancer Additional Family Medical History / Comment(s): cancer General Exam - General Exam Comments Initial Comments: General: Appears in no acute distress. HEAD: Normal with no signs of head trauma. EYES: EOMI. ENT: Hearing grossly intact. RESPIRATORY: No respiratory distress. C/V: Regular rate and rhythm. ABD: Abdomen is nondistended. Nontender to palpation. : Lowry catheter appears somewhat function but does have drainage around the Lowry site. EXT: No obvious deformity. SKIN: No rashes or lesions observed on exposed skin. NEURO: Alert and oriented. Limitations: no limitations Course Vital Signs 09/22/22 09/22/22 02:23 05:53 Temperature 98.1 F Pulse Rate 103 H 102 H Respiratory 20 18 Rate Blood Pressure 115/68 133/82 O2 Sat by Pulse 96 94 L Oximetry Medical Decision Making - Medical Decision Making Was pt. sent in by a medical professional or institution (, PA, SLUDGE FILTRATION OPERATOR, urgent care, hospital, or care home...) When possible be specific @ -No Did you speak to anyone other than the patient for history (EMS, parent, family, police, friend...)? What history was obtained from this source @ -No Did you review nursing and triage notes (agree or disagree)? Why? @ -I reviewed and agree with nursing and triage notes Were old charts reviewed (outside hosp., previous admission, EMS record, old EKG, old radiological studies, urgent care reports/EKG's, care home records)? Report findings @ -Reviewed chart from August 2022 Differential Diagnosis (chest pain, altered mental status, abdominal pain women, abdominal pain men, vaginal bleeding, weakness, fever, dyspnea, syncope, headache, dizziness, GI bleed, back pain, seizure, CVA, palpatations, mental health, musculoskeletal)? @ -Lowry catheter malfunction, urinary retention. This list is not all inclusive EKG interpreted by me (3pts min.). @ -None done X-rays interpreted by me (1pt min.). @ -None done CT interpreted by me (1pt min.). @ -None done U/S interpreted by me (1pt. min.). @ -None done What testing was considered but not performed or refused? (CT, X-rays, U/S, labs)? Why? @ -None What meds were considered but not given or refused? Why? @ -None Did you discuss the management of the patient with other professionals (professionals i.e. , PA, SLUDGE FILTRATION OPERATOR, lab, RT, psych nurse, social services analyst, binding machine operator, teacher, svp chief marketing officer, manager case)? Give summary @ -No Was smoking cessation discussed for >3mins.? @ -No Was critical care preformed (if so, how long)? @ -No Were there social determinants of health that impacted care today? How? ( Homelessness, low income, unemployed, alcoholism, drug addiction, transportation, low edu. Level, literacy, decrease access to med. care, usp, rehab)? @ -No Was there de-escalation of care discussed even if they declined (Discuss DNR or withdrawal of care, Hospice)? DNR status @ -No What co-morbidities impacted this encounter? (DM, HTN, Smoking, COPD, CAD, Cancer, CVA, ARF, Chemo, Hep., AIDS, mental health diagnosis, sleep apnea, morbid obesity)? @ -None Was patient admitted / discharged? Hospital course, mention meds given and route, prescriptions, significant lab abnormalities, going to OR and other pertinent info. @ -Based on the patient's presentation and physical exam, he presents with Lowry catheter malfunction. Initially we attempted to replace the catheter but was too small as he is still having leakage around the Lowry site. Patient wishes to attempt to urinate on his own. He would like to go home if he can attempted not go home with the catheter. I believe this is reasonable. No labs or imaging are required at this time. We will obtain postvoid residual. Patient urinated twice and had a postvoid residual of approximately 100 mL per nursing staff. I discussed replacement of Lowry catheter and he declines at this time. He will return if he begins having abdominal distention and pain again. I believe this is reasonable. He does have follow-up with urology Dr. Carcamo in 2 days. Discussed he needs to make this appointment and return if he has any worsening symptoms. He was in agreement with this plan. I instructed the patient to follow up with their PCP in the next 1-3 days. I explained that the patient should return to the emergency department if they experience any worsening symptoms. Strict return precautions were discussed with the patient. The patient expressed understanding of these instructions. I answered all questions that the patient had. The patient was discharged home in good condition with their prescriptions and follow up information. Undiagnosed new problem with uncertain prognosis? @ -No Drug Therapy requiring intensive monitoring for toxicity (Heparin, Nitro, Insulin, Cardizem)? @ -No Were any procedures done? @ -No Diagnosis/symptom? @ -Lowry catheter malfunction Acute, or Chronic, or Acute on Chronic? @ -Acute Uncomplicated (without systemic symptoms) or Complicated (systemic symptoms)? @ -Uncomplicated Side effects of treatment? @ -No Exacerbation, Progression, or Severe Exacerbation? @ -No Poses a threat to life or bodily function? How? (Chest pain, [place], OR, pneumonia, PE, COPD, DKA, ARF, appy, cholecystitis, CVA, Diverticulitis, Homicidal, Suicidal, threat to staff... and all critical care pts) @ -No Disposition Clinical Impression: Lowry catheter problem Disposition: HOME SELF-CARE Condition: Good Instructions (If sedation given, give patient instructions): Urinary Retention in Men (ED) Is patient prescribed a controlled substance at d/c from ED?: No Referrals: Natalie Menjivar MD [Primary Care Provider] - 1-2 days Gokul Carcamo MD [STAFF PHYSICIAN] - 1-2 days Time of Disposition: 05:56
== END 2022-09-22 06:15 | disposition home or self-care (01) ==
LOC: EC 02:20
DX: T83.091A Other mechanical complication of indwelling urethral catheter, initial encounter (principal); K21.9 Gastro-esophageal reflux disease without esophagitis; I10 Essential (primary) hypertension; E07.9 Disorder of thyroid, unspecified; Z79.82 Long term (current) use of aspirin; Z79.890 Hormone replacement therapy; Z79.899 Other long term (current) drug therapy
CPT/HCPCS: 51798; 99284

== ENCOUNTER → 2022-10-13 | Outpatient (CLI) | payer MEDICARE ==
--- NOTE | 2022-10-13 13:07 | US ---
EXAMINATION TYPE: US venous doppler duplex LE RT DATE OF EXAM: 10/13/2022 12:36 PM COMPARISON: NONE CLINICAL INDICATION: Male, 77 years old with history of M79.661 PAIN IN RIGHT LOWER LEG R22.43 LOCALI ZED S C25.2 RLE; rt leg edema SIDE PERFORMED: Right TECHNIQUE: The lower extremity deep venous system is examined utilizing real time linear array sonog george with graded compression, doppler sonography and color-flow sonography. VESSELS IMAGED: Common Femoral Vein Deep Femoral Vein Greater Saphenous Vein * Femoral Vein Popliteal Vein Small Saphenous Vein * Proximal Calf Veins (* superficial vessels) Right Leg: Negative for DVT IMPRESSION: Grayscale, color doppler, spectral doppler imaging performed of the deep veins of the lo wer extremities. There is normal flow, compressibility, vascular waveforms.
== END | disposition home or self-care (01) ==
LOC: RADUSWWP 12:18
PROVIDERS: ATTEND Internal Medicine
DX: C25.2 Malignant neoplasm of tail of pancreas (principal); M79.661 Pain in right lower leg; R22.43 Localized swelling, mass and lump, lower limb, bilateral

== ENCOUNTER → 2023-01-25 | Outpatient (CLI) | payer MEDICARE ==
--- NOTE | 2023-01-25 18:01 | MR ---
EXAMINATION TYPE: MR Prostate wo/w con DATE OF EXAM: 01/25/2023 10:17 AM COMPARISON: None. CLINICAL INDICATION:Male, 77 years old with history of R97.20 ELEVATED PSA; Elevated PSA. Hx prostat e cancer. TECHNIQUE: Multi-planar, multi-sequence imaging of the pelvis is performed prior to and following the uncomplicated administration of bolus intravenous gadolinium. CONTRAST: 7 Gadavist Interpretive Criteria: PI-RADS v2.1 SERUM PSA: 7.17 on 12/25/2022. 3.0 on 12/17/2021. 2.6 on 05/21/2020. SURGICAL PATHOLOGY: No data available. FINDINGS: Prostatic dimensions: 5.0 x 5.1 x 4.1 cm. Ellipsoid Volume:54.74 (PSA density=0.13 ng/mL/mL) CENTRAL GLAND (Central and Transition Zones/CZ+TZ): Multiple bilateral, heterogenous appearing hypertrophic stromal nodules, without suspicious lesion. ( PI-RADS 2) PERIPHERAL ZONE (PZ): Limited evaluation of the posterior peripheral zone secondary to gas within the rectum. Bilateral linear, indistinct wedgelike areas of low ADC, and low T2 signal, No evidence of masslike a bnormality, or localized perfusional hypervascularity, to further suggest a focus of clinically signi ficant prostate cancer. (PI-RADS 2) SEMINAL VESICLES (SV): Symmetric and unremarkable. PERIPROSTATIC TISSUES: Unremarkable. LYMPH NODES: No enlarged pelvic lymph node. REMAINING PELVIS: Bladder wall is within normal limits given distention. No abnormal free or organized intrapelvic fluid collection. No pathologic bowel dilation or mural thickening. Colonic diverticula are present. Left fat containing inguinal hernia OSSEOUS STRUCTURES: No suspicious osseous abnormality. IMPRESSION: Limited evaluation of the posterior peripheral zone secondary to gas within the rectum. 1. No specific features for high-risk prostate cancer. Maximum PI-RADS score: 2. 2. Moderate BPH, estimated gland volume 54.74 mL.
== END | disposition home or self-care (01) ==
LOC: RADMRIMAIN 08:59
PROVIDERS: ATTEND Internal Medicine
DX: N40.0 Benign prostatic hyperplasia without lower urinary tract symptoms (principal); R97.20 Elevated prostate specific antigen [PSA]
CPT/HCPCS: 72197; A9585

== ENCOUNTER → 2023-06-07 | Outpatient (CLI) | payer MEDICARE ==
[2023-06-07 12:51] LABS: Anisocytosis Slight; Basophils # (A) 0.1 k/uL (0-0.2); Basophils % (A) 1 %; Eosinophils # (A) 0.2 k/uL (0-0.7); Eosinophils % (A) 2 %; HCT 46.9 % (39.0-53.0); HGB 14.9 gm/dL (13.0-17.5); Hypochromasia Slight; Lymphocytes # (A) 1.2 k/uL (1.0-4.8); Lymphocytes % (A) 12 %; MCHC 31.7 g/dL (31.0-37.0); MCV 97.8 fL (80.0-100.0); Macrocytosis Slight; Mean Platelet Volume 9.6; Monocytes # (A) 1.2 k/uL (0-1.0); Monocytes % (A) 11 %; Neutrophils # (A) 7.5 k/uL (1.3-7.7); Neutrophils % (A) 72 %; Platelet Count 401 k/uL (150-450); RDW 17.1 % (11.5-15.5); WBC 10.5 k/uL (3.8-10.6)
[2023-06-07 13:03] LABS: ALT 89 U/L (4-49); AST 166 U/L (17-59); African American GFR (CKD) 81 (>60 ml/min/1.73 sqM); Albumin 3.4 g/dL (3.5-5.0); Anion Gap 7 mmol/L; Blood Urea Nitrogen 23 mg/dL (9-20); Calcium 9.5 mg/dL (8.4-10.2); Carbon Dioxide 26 mmol/L (22-30); Chloride 110 mmol/L (98-107); Globulin 3.4 g/dL; Glucose 149 mg/dL (74-99); Non-African American GFR(CKD) 70 (>60 ml/min/1.73 sqM); Sodium 143 mmol/L (137-145); Total Bilirubin 8.7 mg/dL (0.2-1.3); Total Protein 6.8 g/dL (6.3-8.2)
[2023-06-07 13:39] LABS: Alkaline Phosphatase 806 U/L (38-126)
--- NOTE | 2023-06-07 14:20 | CT ---
EXAMINATION TYPE: CT abdomen pelvis w con DATE OF EXAM: 06/07/2023 COMPARISON: 09/15/2022 HISTORY: obstructive jaundice, pancreatic cancer CT DLP: 1246 mGycm Automated exposure control for dose reduction was used. TECHNIQUE: Helical acquisition of images was performed from the lung bases through the pelvis. CONTRAST: Performed with Oral Contrast and with IV Contrast, patient injected with 100 mL of Isovue 300. FINDINGS: Lung bases are clear. There is surgical absence of gallbladder. There is been interval development of mild intrahepatic levi iary ductal dilatation. There are a few scattered hypodensities throughout the liver which were seen previously and appears t o be small cysts. There are postsurgical changes with apparent resection of the pancreatic tail. There is no recurrent pancreatic mass. There is surgical absence of the spleen. No adrenal masses are seen. There is no solid renal mass or hydronephrosis. There are multiple large renal calcifications which a re stable. The largest is seen in the left kidney and measures 2.3 cm in size. The largest calcificat ion in the right kidney is approximately 1.8 cm. There is no retroperitoneal adenopathy or hemorrhage in the caliber of the abdominal aorta is normal. There is a small amount of free fluid adjacent to the liver edge. There is no free intraperitoneal ai r there has been interval development of ill-defined density in the anterior abdomen in the region of the omentum suggestive of omental metastasis. There is a large amount of stool within the colon but there is no bowel obstruction or free intraperi toneal air. There is marked diverticulosis of the colon but no CT evidence of acute diverticulitis. There is no pelvic mass or adenopathy. There is moderate prostatic hypertrophy. There is no free fluid within the pelvis. No focal osseous lesions are seen. IMPRESSION: 1. 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 2. No bowel obstruction but a large amount of stool within the colon and rectum. 3. Resection of the tail the pancreas. 4. Marked renal calcifications which are stable but no development of hydronephrosis. 5. Moderate prostatic hypertrophy. 6. No retroperitoneal or pelvic adenopathy. 7. No focal osseous lesions.
[2023-06-07 15:39] LABS: Carcinoembryonic Antigen 42.7 ng/mL (0.0-4.9)
[2023-06-07 20:11] LABS: Amylase 43 U/L (23-121); LDH 233 U/L (120-246); Lipase 41 U/L (14-60)
[2023-06-08 04:54] LABS: Cancer Antigen 19-9 <4.0 U/mL (0.0-34.9)
== END | disposition home or self-care (01) ==
LOC: RADCTMAIN 11:49
PROVIDERS: ATTEND Internal Medicine
DX: N40.0 Benign prostatic hyperplasia without lower urinary tract symptoms (principal); K83.1 Obstruction of bile duct; C25.2 Malignant neoplasm of tail of pancreas; N28.89 Other specified disorders of kidney and ureter; K56.41 Fecal impaction; K83.8 Other specified diseases of biliary tract; R18.8 Other ascites
CPT/HCPCS: 80053; 82378; 82150; 83615; 83690; 85025; 86301; 74177; 36415; Q9967